=== PATIENT | male | born 1940 | race Caucasian/White ===

== ENCOUNTER 2020-08-06 21:28 | Emergency (ER) | payer MEDICARE ==
--- NOTE | 2020-08-06 22:06 | EDM.PDOC ---
ED HPI GENERAL MEDICAL PROBLEM - General Chief Complaint: Chest Pain Stated Complaint: MEDICAL [facility] Time Seen by Provider: 08/06/20 21:35 Source of Information: Reports: Patient, EMS, RN History Limitations: Reports: No Limitations - History of Present Illness INITIAL COMMENTS - FREE TEXT/NARRATIVE: 80-year-old male tends to have chronic chest pain complaints, tonight was again complaining of some chest discomfort. He also said he had to go to the bathroom so they were helping him get to the bathroom and he had a near syncopal episode. This was followed by a very large bowel movement, he was still complaining of chest pain so they gave him 1 nitroglycerin and decided to send him for evaluation. When EMS arrived and picked him up he was having no symptoms. He is still having no symptoms Onset: Sudden (Pain started fairly suddenly around 7 PM) Location: Reports: Chest - Related Data Allergies Allergy/AdvReac Type Severity Reaction Status Date / Time Sulfa (Sulfonamide Allergy Hives Verified 08/06/20 21:36 Antibiotics) Home Meds: Home Meds Amitriptyline [Elavil] 100 mg PO BEDTIME 08/06/20 [History] Aspirin [Ecotrin EC] 81 mg PO DAILY 08/06/20 [History] Divalproex Sodium [Depakote] 250 mg PO BEDTIME 08/06/20 [History] Donepezil HCl [Aricept] 10 mg PO DAILY 08/06/20 [History] Escitalopram Oxalate [Lexapro] 20 mg PO DAILY 08/06/20 [History] LORazepam [Ativan] 1 mg PO Q4H PRN 08/06/20 [History] Melatonin 36 mg PO BEDTIME 08/06/20 [History] Memantine [Namenda] 10 mg PO BID 08/06/20 [History] Metoprolol Tartrate [Lopressor] 50 mg PO BID 08/06/20 [History] Mirtazapine [Remeron] 45 mg PO BEDTIME 08/06/20 [History] Nitroglycerin [Nitrostat] 0.4 mg SL ASDIRECTED 08/06/20 [History] Omeprazole 20 mg PO BID 08/06/20 [History] hydrOXYzine HCL [Atarax] 25 mg PO BID 08/06/20 [History] Past Medical History HEENT History: Reports: Impaired Vision Cardiovascular History: Reports: Angina, CAD, Hypertension, Other (See Below) Other Cardiovascular History: prolonged Q-T interval on ECG Musculoskeletal History: Reports: Arthritis, Osteoarthritis Psychiatric History: Reports: Anxiety, Dementia, Depression Endocrine/Metabolic History: Reports: Obesity/BMI 30+ Social & Family History - Tobacco Use Tobacco Use Status *Q: Unknown Ever Used Tobacco ED ROS GENERAL - Review of Systems Review Of Systems: See Below Constitutional: Denies: Fever, Chills, Malaise HEENT: Reports: No Symptoms Respiratory: Denies: Shortness of Breath, Cough Cardiovascular: Reports: Chest Pain. Denies: Palpitations Endocrine: Denies: Fatigue GI/Abdominal: Reports: Vomiting (1 episode of vomiting this evening after his near syncopal episode) Neurological: Reports: Other (Near syncope) ED EXAM, GENERAL - Physical Exam Exam: See Below Exam Limited By: No Limitations General Appearance: Alert, No Apparent Distress Head: Atraumatic Neck: Supple, Non-Tender Respiratory/Chest: Lungs Clear Cardiovascular: Regular Rate, Rhythm GI/Abdominal: Soft, Non-Tender Neurological: Alert Psychiatric: Normal Affect, Normal Mood Skin Exam: Warm, Dry #1 Interpretation EKG Date: 08/06/20 Rhythm: NSR ST-T: Normal Course - Vital Signs Last Recorded V/S: Last Vital Signs Temp 97.4 F 08/06/20 21:54 Pulse 70 08/06/20 22:31 Resp 17 08/06/20 22:31 BP 125/66 08/06/20 22:31 Pulse Ox 96 08/06/20 22:31 - Orders/Labs/Meds Orders: Active Orders 24 hr Category Date Time Status EKG 12 Lead [EK] Routine Ther 08/06/20 21:42 Ordered Labs: Laboratory Tests 08/06/20 Range/Units 21:57 Troponin I < 0.017 (0.000-0.056) ng/mL - Re-Assessments/Exams Free Text/Narrative Re-Assessment/Exam: 08/06/20 22:06 EKG done on arrival is normal. Troponin was drawn, if this is negative he will be sent back. 08/06/20 22:30 Patient remained comfortable and asymptomatic, troponin was 0. He will be discharged home. Departure - Departure Time of Disposition: 22:57 Disposition: DC[facility] Clinical Impression: Atypical chest pain - Discharge Information Instructions: Nonspecific Chest Pain, Adult, [id number] Referrals: PCP,None [Primary Care Provider] - Forms: ED Department Discharge Care Plan Goals: Continue your current medications. Use nitroglycerin for recurring chest pains and consider returning if persistent especially with shortness of breath. Sepsis Event Note (ED) - Evaluation Sepsis Screening Result: No Definite Risk - Focused Exam Vital Signs: Vital Signs Temp Pulse Resp BP Pulse Ox 08/06/20 22:31 70 17 125/66 96 08/06/20 21:54 97.4 F 64 16 126/76 97 08/06/20 21:50 97.4 F 64 16 126/76 97 - My Orders Last 24 Hours: My Active Orders 08/06/20 21:42 EKG 12 Lead [EK] Routine - Assessment/Plan Last 24 Hours: My Active Orders 08/06/20 21:42 EKG 12 Lead [EK] Routine
== END 2020-08-06 22:58 ==
LOC: JP.ED 21:28
DX: R07.89 Other chest pain (principal); I25.10 Atherosclerotic heart disease of native coronary artery without angina pectoris; I10 Essential (primary) hypertension; M19.90 Unspecified osteoarthritis, unspecified site; F03.90 Unspecified dementia, unspecified severity, without behavioral disturbance, psychotic disturbance, mood disturbance, and anxiety; E66.9 Obesity, unspecified; Z68.27 Body mass index [BMI] 27.0-27.9, adult; Z79.82 Long term (current) use of aspirin; Z79.899 Other long term (current) drug therapy; Z88.2 Allergy status to sulfonamides
CPT/HCPCS: 36415; 84484; 93005; 99284; 99285-25

== ENCOUNTER 2020-09-13 15:04 | Emergency (ER) | payer MEDICARE ==
--- NOTE | 2020-09-13 15:35 | EDM.PDOC ---
<OfficerJacek - Last Filed: 09/13/20 15:33> ED HPI GENERAL MEDICAL PROBLEM - General Chief Complaint: Chest Pain Stated Complaint: MEDICAL [facility]IA [facility] Time Seen by Provider: 09/13/20 15:28 Source of Information: Reports: Patient, RN Notes Reviewed History Limitations: Reports: Physical Impairment - History of Present Illness INITIAL COMMENTS - FREE TEXT/NARRATIVE: 80-year-old gentleman presents the emergency department with a complaint of chest pain, he is a resident of the [facility] unit does have a history of coronary artery disease with a history of stenting. States the chest pain started about an hour and a half ago did arrive by EMS where he received 1 spray nitro 324 aspirin EKG performed by paramedics reveals no ST elevations or depressions. At this time he is chest pain-free does admit to some shortness of breath no nausea no diaphoresis Treatments CARPENTER ASSISTANT: Reports: Aspirin, Nitroglycerin chest pain Pain Score (Numeric/FACES): 3 - Related Data Allergies Allergy/AdvReac Type Severity Reaction Status Date / Time Sulfa (Sulfonamide Allergy Hives Verified 09/13/20 15:10 Antibiotics) Home Meds: Home Meds Amitriptyline [Elavil] 100 mg PO BEDTIME 08/06/20 [History] Aspirin [Ecotrin EC] 81 mg PO DAILY 08/06/20 [History] Divalproex Sodium [Depakote] 250 mg PO BEDTIME 08/06/20 [History] Donepezil HCl [Aricept] 10 mg PO DAILY 08/06/20 [History] Escitalopram Oxalate [Lexapro] 20 mg PO DAILY 08/06/20 [History] LORazepam [Ativan] 0.5 mg PO Q4H PRN 08/06/20 [History] Melatonin 6 mg PO BEDTIME 08/06/20 [History] Memantine [Namenda] 10 mg PO BID 08/06/20 [History] Metoprolol Tartrate [Lopressor] 50 mg PO BID 08/06/20 [History] Mirtazapine [Remeron] 45 mg PO BEDTIME 08/06/20 [History] Nitroglycerin [Nitrostat] 0.4 mg SL ASDIRECTED 08/06/20 [History] Omeprazole 20 mg PO BID 08/06/20 [History] hydrOXYzine HCL [Atarax] 25 mg PO BID 08/06/20 [History] Past Medical History HEENT History: Reports: Impaired Vision Cardiovascular History: Reports: Angina, CAD, Hypertension, Other (See Below) Other Cardiovascular History: prolonged Q-T interval on ECG Musculoskeletal History: Reports: Arthritis, Osteoarthritis Psychiatric History: Reports: Alzheimers Disease, Anxiety, Dementia, Depression Endocrine/Metabolic History: Reports: Obesity/BMI 30+ Social & Family History - Tobacco Use Tobacco Use Status *Q: Former Tobacco User Used Tobacco, but Quit: Yes Month/Year Tobacco Last Used: 30 ED ROS GENERAL - Review of Systems Review Of Systems: See Below Constitutional: Reports: No Symptoms HEENT: Reports: No Symptoms Respiratory: Reports: Shortness of Breath Cardiovascular: Reports: Chest Pain GI/Abdominal: Reports: No Symptoms : Reports: No Symptoms ED EXAM, GENERAL - Physical Exam Exam: See Below Exam Limited By: No Limitations General Appearance: Alert, WD/WN, No Apparent Distress Respiratory/Chest: No Respiratory Distress, Lungs Clear, Normal Breath Sounds, No Accessory Muscle Use, Chest Non-Tender Cardiovascular: Regular Rate, Rhythm, No Murmur GI/Abdominal: Soft, Non-Tender Departure - Departure Disposition: Home, Self-Care 01 Clinical Impression: Chest pain Qualifiers: Chest pain type: precordial pain Qualified Code(s): R07.2 - Precordial pain Instructions: Angina, [id number] Referrals: PCP,None [Primary Care Provider] - Forms: ED Department Discharge Care Plan Goals: Consider using sublingual nitroglycerin at home prior to transfer, and if pain persists return to the emergency room. Also consider a cardiology consultation for further testing if symptoms continue recurring and you are interested in more definitive treatment such as angiogram, surgery or stenting if needed. Sepsis Event Note (ED) - Evaluation Sepsis Screening Result: No Definite Risk <Francisco Gunn - Last Filed: 09/13/20 22:44> Course - Vital Signs Last Recorded V/S: Last Vital Signs Temp 97.7 F 09/13/20 15:09 Pulse 76 09/13/20 15:09 Resp 16 09/13/20 15:09 BP 111/64 09/13/20 15:09 Pulse Ox 92 L 09/13/20 15:09 - Orders/Labs/Meds Labs: Laboratory Tests 09/13/20 09/13/20 09/13/20 Range/Units 15:43 15:43 17:48 WBC 6.6 (4.5-11.0) K/uL RBC 4.69 (4.30-5.90) M/uL Hgb 13.4 (12.0-15.0) g/dL Hct 40.0 (40.0-54.0) % MCV 85 (80-98) fL MCH 29 (27-31) pg MCHC 34 (32-36) % Plt Count 133 L (150-400) K/uL Neut % (Auto) 64 (36-66) % Lymph % (Auto) 21 L (24-44) % [place] % (Auto) 9 H (2-6) % Eos % (Auto) 6 H (2-4) % Baso % (Auto) 1 (0-1) % Sodium 142 (140-148) mmol/L Potassium 4.4 (3.6-5.2) mmol/L Chloride 103 (100-108) mmol/L Carbon Dioxide 31 (21-32) mmol/L Anion Gap 8.0 (5.0-14.0) mmol/L BUN 13 (7-18) mg/dL Creatinine 0.9 (0.8-1.3) mg/dL Est Cr Clr Drug Dosing 60.06 mL/min Estimated GFR (MDRD) > 60 (>60) Glucose 99 (74-106) mg/dL Calcium 8.6 (8.5-10.1) mg/dL Total Bilirubin 0.6 (0.2-1.0) mg/dL AST 42 H (15-37) U/L ALT 37 (12-78) U/L Alkaline Phosphatase 97 (46-116) U/L Troponin I < 0.017 < 0.017 (0.000-0.056) ng/mL Total Protein 6.1 L (6.4-8.2) g/dL Albumin 3.5 (3.4-5.0) g/dL Globulin 2.6 (2.3-3.5) g/dL Albumin/Globulin Ratio 1.3 (1.2-2.2) - Re-Assessments/Exams Free Text/Narrative Re-Assessment/Exam: 09/13/20 18:30 Care turned over from Officer pending second troponin. Patient continues to have no symptoms. Troponin is 0, patient will be discharged. Departure - Departure Time of Disposition: 18:52 Sepsis Event Note (ED) - Focused Exam Vital Signs: Vital Signs Temp Pulse Resp BP Pulse Ox 09/13/20 15:09 97.7 F 76 16 111/64 92 L
--- NOTE | 2020-09-13 16:06 | CR ---
CHEST: Portable 09/13/2020 at 3:47 PM CLINICAL HISTORY:Chest pain COMPARISON:None FINDINGS: There is streaky atelectasis in both lung bases. There are atherosclerotic changes in the aorta. No infiltrates are seen. There are no pleural effusions. Impression: No acute cardiac pulmonary process Streaky bilateral lower lobe atelectasis
== END 2020-09-13 18:52 | disposition home or self-care (01) ==
LOC: JP.ED 15:04
DX: R07.2 Precordial pain (principal); I25.10 Atherosclerotic heart disease of native coronary artery without angina pectoris; I10 Essential (primary) hypertension; E66.9 Obesity, unspecified; Z87.891 Personal history of nicotine dependence; Z79.899 Other long term (current) drug therapy; Z79.82 Long term (current) use of aspirin; Z88.2 Allergy status to sulfonamides; Z68.38 Body mass index [BMI] 38.0-38.9, adult
CPT/HCPCS: 36415; 71045; 71045-26; 80053; 84484; 85025; 99285-25

== ENCOUNTER 2020-10-22 12:00 | Emergency (ER) | payer MEDICARE, MEDICAID ==
--- NOTE | 2020-10-22 12:11 | EDM.PDOC ---
ED HPI GENERAL MEDICAL PROBLEM - General Chief Complaint: Chest Pain Stated Complaint: MEDICAL [facility] Time Seen by Provider: 10/22/20 13:04 Source of Information: Reports: Patient, EMS, Family, RN Notes Reviewed History Limitations: Reports: No Limitations - History of Present Illness INITIAL COMMENTS - FREE TEXT/NARRATIVE: 80-year-old gentleman presents emergency department day complaint of chest pain, he states that chest pain on and off throughout most of the day today. He did arrive by EMS services was given aspirin and nitro. He states the nitro helped he still having some ongoing chest pain no nausea vomiting no shortness of breath no diaphoresis. He does have a history of coronary artery disease he is a DNR and DNI Epigastric Pain Score (Numeric/FACES): 7 - Related Data Allergies Allergy/AdvReac Type Severity Reaction Status Date / Time Sulfa (Sulfonamide Allergy Hives Verified 09/13/20 15:10 Antibiotics) Home Meds: Home Meds Amitriptyline [Elavil] 100 mg PO BEDTIME 08/06/20 [History] Aspirin [Ecotrin EC] 81 mg PO DAILY 08/06/20 [History] Divalproex Sodium [Depakote] 250 mg PO BEDTIME 08/06/20 [History] Donepezil HCl [Aricept] 10 mg PO DAILY 08/06/20 [History] Escitalopram Oxalate [Lexapro] 20 mg PO DAILY 08/06/20 [History] LORazepam [Ativan] 0.5 mg PO Q4H PRN 08/06/20 [History] Melatonin 6 mg PO BEDTIME 08/06/20 [History] Memantine [Namenda] 10 mg PO BID 08/06/20 [History] Metoprolol Tartrate [Lopressor] 50 mg PO BID 08/06/20 [History] Mirtazapine [Remeron] 45 mg PO BEDTIME 08/06/20 [History] Nitroglycerin [Nitrostat] 0.4 mg SL ASDIRECTED 08/06/20 [History] Omeprazole 20 mg PO BID 08/06/20 [History] hydrOXYzine HCL [Atarax] 25 mg PO BID 08/06/20 [History] Past Medical History HEENT History: Reports: Impaired Vision Cardiovascular History: Reports: Angina, CAD, High Cholesterol, Hypertension, Other (See Below) Other Cardiovascular History: prolonged Q-T interval on ECG Musculoskeletal History: Reports: Arthritis, Osteoarthritis Psychiatric History: Reports: Alzheimers Disease, Anxiety, Dementia, Depression Endocrine/Metabolic History: Reports: Obesity/BMI 30+ Social & Family History - Tobacco Use Tobacco Use Status *Q: Former Tobacco User ED ROS GENERAL - Review of Systems Review Of Systems: See Below Constitutional: Reports: No Symptoms HEENT: Reports: No Symptoms Respiratory: Denies: Shortness of Breath Cardiovascular: Reports: Chest Pain GI/Abdominal: Reports: No Symptoms ED EXAM, GENERAL - Physical Exam Exam: See Below Exam Limited By: No Limitations General Appearance: Alert, WD/WN, No Apparent Distress Respiratory/Chest: No Respiratory Distress, Lungs Clear, Normal Breath Sounds, No Accessory Muscle Use, Chest Non-Tender Cardiovascular: Regular Rate, Rhythm, No Murmur GI/Abdominal: Soft, Non-Tender #1 Interpretation EKG Date: 10/22/20 Time: 12:06 Rhythm: NSR [place]: Normal P-Wave: Present QRS: Normal ST-T: Normal QT: Normal Comparison: NA - No Prior EKG Course - Vital Signs Last Recorded V/S: Last Vital Signs Temp 96.2 F L 10/22/20 12:14 Pulse 59 L 10/22/20 12:14 Resp 15 10/22/20 12:14 BP 96/54 L 10/22/20 12:14 Pulse Ox 88 L 10/22/20 12:14 - Orders/Labs/Meds Orders: Active Orders 24 hr Category Date Time Status Cardiac Monitoring [RC] .As Directed Care 10/22/20 13:03 Active EKG Documentation Completion [RC] ASDIRECTED Care 10/22/20 13:03 Active Peripheral IV Care [RC] . DIRECTED Care 10/22/20 13:03 Active Nitroglycerin [Nitrostat] Med 10/22/20 13:03 Active 0.4 mg SL Q5M PRN Sodium Chloride 0.9% [Saline Flush] Med 10/22/20 13:03 Active 10 ml FLUSH ASDIRECTED PRN Peripheral IV Insertion Adult [OM.PC] Stat Oth 10/22/20 13:03 Ordered Saline Lock Insert [OM.PC] Stat Oth 10/22/20 13:03 Ordered EKG 12 Lead [EK] Stat Ther 10/22/20 13:03 Ordered Medication Orders Nitroglycerin (Nitroglycerin 0.4 Mg Tab.Sl) 0.4 mg SL Q5M PRN PRN Reason: Chest Pain Stop: 10/23/20 13:03 Sodium Chloride (Sodium Chloride 0.9% 10 Ml Syringe) 10 ml FLUSH ASDIRECTED PRN PRN Reason: Keep Vein Open Last Admin: 10/22/20 13:35 Dose: 10 ml Documented by: JAVIER Labs: Laboratory Tests 10/22/20 10/22/20 Range/Units 13:16 13:16 WBC 10.2 (4.5-11.0) K/uL RBC 4.45 (4.30-5.90) M/uL Hgb 12.9 (12.0-15.0) g/dL Hct 38.2 L (40.0-54.0) % MCV 86 (80-98) fL MCH 29 (27-31) pg MCHC 34 (32-36) % Plt Count 129 L (150-400) K/uL Neut % (Auto) 79.0 H (36-66) % Lymph % (Auto) 12.2 L (24-44) % [place] % (Auto) 7.9 H (2-6) % Eos % (Auto) 0.8 L (2-4) % Baso % (Auto) 0.1 (0-1) % Sodium 140 (140-148) mmol/L Potassium 4.3 (3.6-5.2) mmol/L Chloride 103 (100-108) mmol/L Carbon Dioxide 27 (21-32) mmol/L Anion Gap 9.6 (5.0-14.0) mmol/L BUN 12 (7-18) mg/dL Creatinine 0.8 (0.8-1.3) mg/dL Est Cr Clr Drug Dosing 82.18 mL/min Estimated GFR (MDRD) > 60 (>60) Glucose 125 H (74-106) mg/dL Calcium 8.6 (8.5-10.1) mg/dL Total Bilirubin 0.5 (0.2-1.0) mg/dL AST 103 H D (15-37) U/L ALT 129 H (12-78) U/L Alkaline Phosphatase 98 (46-116) U/L Troponin I < 0.017 (0.000-0.056) ng/mL Total Protein 6.2 L (6.4-8.2) g/dL Albumin 3.5 (3.4-5.0) g/dL Globulin 2.7 (2.3-3.5) g/dL Albumin/Globulin Ratio 1.3 (1.2-2.2) Meds: Medications Generic Name Dose Route Start Last Admin Trade Name Freq PRN Reason Stop Dose Admin Nitroglycerin 0.4 mg 10/22/20 13:03 Nitroglycerin 0.4 Mg Tab.Sl SL 10/23/20 13:03 Q5M PRN Chest Pain Sodium Chloride 10 ml 10/22/20 13:03 10/22/20 13:35 Sodium Chloride 0.9% 10 Ml Syringe FLUSH 10 ml ASDIRECTED PRN Administration Keep Vein Open Discontinued Medications Generic Name Dose Route Start Last Admin Trade Name Freq PRN Reason Stop Dose Admin Aspirin 324 mg 10/22/20 13:03 10/22/20 13:15 Aspirin 81 Mg Tab.Chew PO 10/22/20 13:04 324 mg ONETIME ONE Administration Al Hydroxide/Mg Hydroxide 15 0 ml 10/22/20 13:58 10/22/20 14:05 ml/ Lidocaine HCl 15 ml PO 10/22/20 13:59 30 ml ONETIME ONE Administration Ondansetron HCl 4 mg 10/22/20 13:16 10/22/20 13:35 Ondansetron 4 Mg/2 Ml Sdv IVPUSH 10/22/20 13:17 4 mg ONETIME ONE Administration Departure - Departure Time of Disposition: 14:59 Disposition: Home, Self-Care 01 Condition: Fair Clinical Impression: Epigastric abdominal pain Instructions: Abdominal Pain, Adult, [id number] Referrals: PCP,None [Primary Care Provider] - Forms: ED Department Discharge Additional Instructions: Continue with your regular medications, please followup with your primary care provider in 3-5 days if not better, please call return to the emergency department with worsening of symptoms. Sepsis Event Note (ED) - Focused Exam Vital Signs: Vital Signs Temp Pulse Resp BP Pulse Ox 10/22/20 12:14 96.2 F L 59 L 15 96/54 L 88 L - My Orders Last 24 Hours: My Active Orders 10/22/20 13:03 Cardiac Monitoring [RC] .As Directed EKG Documentation Completion [RC] ASDIRECTED Peripheral IV Care [RC] . DIRECTED Nitroglycerin [Nitrostat] 0.4 mg SL Q5M PRN Sodium Chloride 0.9% [Saline Flush] 10 ml FLUSH ASDIRECTED PRN Peripheral IV Insertion Adult [OM.PC] Stat Saline Lock Insert [OM.PC] Stat EKG 12 Lead [EK] Stat - Assessment/Plan Last 24 Hours: My Active Orders 10/22/20 13:03 Cardiac Monitoring [RC] .As Directed EKG Documentation Completion [RC] ASDIRECTED Peripheral IV Care [RC] . DIRECTED Nitroglycerin [Nitrostat] 0.4 mg SL Q5M PRN Sodium Chloride 0.9% [Saline Flush] 10 ml FLUSH ASDIRECTED PRN Peripheral IV Insertion Adult [OM.PC] Stat Saline Lock Insert [OM.PC] Stat EKG 12 Lead [EK] Stat Plan: Assessment Acuity = acute Site and laterality = epigastric abdominal pain Etiology = probably related to reflux Manifestations = none Location of injury = Home Lab values = CBC unremarkable CMP reveals AST elevated 103 ALT elevated 129 consistent with elevated liver enzymes, troponin was negative EKG unremarkable same as prior EKG chest x-ray shows no acute process Plan He had good relief from a GI cocktail although difficult to assess secondary to his dementia, I did review with his family lab work EKG chest x-ray results plan is discharged home follow-up with his primary care as needed This note was dictated using [employer] voice recognition software please call with any questions on syntax or grammar.
[2020-10-22] MEDS ORDERED: Nitroglycerin 0.4 MG Tab.SL SL PRN (13:03)
[2020-10-22] MEDS ORDERED: Aspirin 81 MG Tab.Chew PO ONE (13:03)
[2020-10-22] MEDS ORDERED: Sodium Chloride 0.9% 10 ML Syringe FLUSH PRN (13:03)
[2020-10-22] MEDS ORDERED: Ondansetron 4 MG/2 ML SDV IVPUSH ONE (13:16)
--- NOTE | 2020-10-22 13:44 | CR ---
CHEST: Portable 10/22/2020 at 1:32 PM CLINICAL HISTORY:Chest pain COMPARISON:09/13/2020 FINDINGS: The heart size, pulmonary vascularity and hilar structures are normal. No infiltrate effusion or pneumothorax is seen. There is some nodularity in the inferior right hilar region. There is overlapping EKG leads. IMPRESSION: No acute cardiopulmonary process. Questionable nodularity in the right infrahilar region. Two-view chest recommended when patient's condition allows.
[2020-10-22] MEDS ORDERED: Alum Hydrox/Mag Hydrox/Simeth 15 ML, Lidocaine 2% 15 ML PO ONE ×2 (13:58)
== END 2020-10-22 15:17 | disposition home or self-care (01) ==
LOC: JP.ED 12:00
DX: R10.13 Epigastric pain (principal); I25.10 Atherosclerotic heart disease of native coronary artery without angina pectoris; E78.00 Pure hypercholesterolemia, unspecified; I10 Essential (primary) hypertension; M19.90 Unspecified osteoarthritis, unspecified site; G30.9 Alzheimer's disease, unspecified; F02.80 Dementia in other diseases classified elsewhere, unspecified severity, without behavioral disturbance, psychotic disturbance, mood disturbance, and anxiety; E66.9 Obesity, unspecified; Z68.32 Body mass index [BMI] 32.0-32.9, adult; Z88.2 Allergy status to sulfonamides; Z79.82 Long term (current) use of aspirin; Z79.899 Other long term (current) drug therapy; Z87.891 Personal history of nicotine dependence
CPT/HCPCS: 36415; 71045; 71045-26; 80053; 84484; 85025; 93005; 96374; 99285-25; A9270-GY; J2405

== ENCOUNTER 2020-10-24 18:39 | Inpatient (IN) | payer MEDICARE, MEDICAID ==
[2020-10-24] MEDS ORDERED: Sodium Chloride 0.9% 10 ML Syringe FLUSH PRN ×2 (18:48)
[2020-10-24] MEDS ORDERED: Sodium Chloride 0.9% 1,000 ML IV SCH (19:00)
--- NOTE | 2020-10-24 19:03 | EDM.PDOC ---
ED HPI GENERAL MEDICAL PROBLEM - General Chief Complaint: Syncope Stated Complaint: MEDICAL [facility]IA [facility] Time Seen by Provider: 10/24/20 18:40 Source of Information: Reports: Patient, EMS, Other (ED RN who took report from EMS) History Limitations: Reports: Other (memory loss) - History of Present Illness INITIAL COMMENTS - FREE TEXT/NARRATIVE: Patient presents via EMS from home. Patient notes he does not feel well. He notes a chills. Has had no runny nose, sore throat, cough, change in taste or smell. He is not had Covid or been vaccinated. Denies any chest pain, palpitat ions or shortness of breath. Denies abdominal pain. Denies any urinary symptoms. He notes he just "does not feel well" Patient's apparently called EMS and was transported here for decreased LOC. Patient is on anticoagulated and denies any other complaints except for above. Apparently there is been no falls or trauma. 193: Additional history obtained from son who is at the bedside. Patient's son notes that he was called by Michelle [facility] care unit patient having a fever this evening. There is been no falls or trauma. Patient lives alone and is . The son notes he been confused for last 12 years or so. There is no recent antibiotics. And per the son patient has been vaccinated against Covid. Son has no further information denies any other related complaints or diarrhea. Onset: Today (Patient presents via EMS from home. Patient notes he does not feel well. He notes to chills. He has had no runny nose, sore throat, cough, headache, neck pain, chest pain, palpitations. ) - Related Data Allergies Allergy/AdvReac Type Severity Reaction Status Date / Time Sulfa (Sulfonamide Allergy Hives Verified 10/24/20 19:14 Antibiotics) Home Meds: Home Meds Aspirin [Ecotrin EC] 81 mg PO DAILY 08/06/20 [History] Divalproex Sodium [Depakote] 250 mg PO BEDTIME 08/06/20 [History] Donepezil HCl [Aricept] 10 mg PO DAILY 08/06/20 [History] Escitalopram Oxalate [Lexapro] 20 mg PO DAILY 08/06/20 [History] Melatonin 6 mg PO BEDTIME 08/06/20 [History] Memantine [Namenda] 10 mg PO BID 08/06/20 [History] Metoprolol Tartrate [Lopressor] 50 mg PO DAILY 08/06/20 [History] Mirtazapine [Remeron] 45 mg PO BEDTIME 08/06/20 [History] Nitroglycerin [Nitrostat] 0.4 mg SL ASDIRECTED 08/06/20 [History] Omeprazole 20 mg PO BID 08/06/20 [History] Acetaminophen [Pain Relief] 650 mg PO TID 10/24/20 [History] Cholecalciferol (Vitamin D3) [Vitamin D3] 1,000 unit PO DAILY 10/24/20 [History] Clotrimazole [Clotrimazole 1%] 1 applic TOP BID 10/24/20 [History] Metoprolol Tartrate 25 mg PO BEDTIME 10/24/20 [History] QUEtiapine [SEROquel] 12.5 mg PO TID 10/24/20 [History] Past Medical History HEENT History: Reports: Impaired Vision Cardiovascular History: Reports: Angina, CAD, High Cholesterol, Hypertension, Other (See Below) Other Cardiovascular History: prolonged Q-T interval on ECG Musculoskeletal History: Reports: Arthritis, Osteoarthritis Psychiatric History: Reports: Alzheimers Disease, Anxiety, Dementia, Depression Endocrine/Metabolic History: Reports: Obesity/BMI 30+ - Infectious Disease History Infectious Disease History: Reports: Chicken Pox, Measles, Mumps Social & Family History - Caffeine Use Caffeine Use: Reports: Coffee ED ROS GENERAL - Review of Systems Review Of Systems: See Below Constitutional: Reports: Fever, Chills HEENT: Reports: No Symptoms Respiratory: Reports: No Symptoms Cardiovascular: Reports: No Symptoms Endocrine: Reports: No Symptoms GI/Abdominal: Reports: No Symptoms : Reports: No Symptoms Musculoskeletal: Reports: No Symptoms Skin: Reports: No Symptoms Neurological: Reports: Weakness Psychiatric: Reports: No Symptoms Hematologic/Lymphatic: Reports: No Symptoms Immunologic: Reports: No Symptoms Free Text/Narrative/Comment: ROS is limited due to to the patient being forgetful. His only complaint to me is he feels weak generally. He is no other complaints. Chart review indicates he is fully vaccinated for Covid. ED EXAM, DIZZINESS - Physical Exam Exam: See Below Exam Limited By: No Limitations General Appearance: Alert Ears: Normal External Exam, Normal Canal Nose: Normal Inspection Throat/Mouth: Normal Inspection Head Exam: Normocephalic Neck: Normal Inspection, Supple, Full Range of Motion Respiratory/Chest: Lungs Clear Cardiovascular: Normal Peripheral Pulses, No Edema, No Murmur GI/Abdominal: Normal Bowel Sounds, Soft, Tender (Subtle tenderness right mid upper quadrant not persistently present.), Other (Small soft potential umbilical hernia. tender in right mid and upper quadrant). No: Guarding, Rigid, Rebound (Male) Exam: No Hernia, Normal Inspection Rectal (Males) Exam: Normal Exam Neurological: Alert, Normal Mood/Affect, Normal Dorsiflexion, No Motor/Sensory Deficits, Other (Oriented to self. No focal arm or leg weakness. He mentions watching television.) Back Exam: Normal Inspection. No: CVA Tenderness (R), CVA Tenderness (L) Extremities: Normal Inspection, Normal Range of Motion, Non-Tender, No Pedal Edema Psychiatric: Normal Affect Skin Exam: Warm, Dry, No Rash #1 Interpretation EKG Date: 10/24/20 Rhythm: NSR Rate (Beats/Min): 95 [place]: Normal P-Wave: Present QRS: Normal ST-T: Other (bordeline t wave change) QT: Normal Comparison: NA - No Prior EKG Course - Vital Signs Text/Narrative:: I consider broad differential diagnosis. Patient presents with memory loss over 12 years and new onset fever and chills today. Patient was seen 2 days ago with chest pain and had negative work-up. Interestingly LFTs were elevated 2 days ago mildly so and have normalized today. Patient by definition of sepsis. His elevated procalcitonin. Cover him with Zosyn. patient has no cp or sob or hypoxemia today. I doubt a PE. He is not a good coumadin candidate. There is no previous history of MRSA. Patient exam today shows no signs of meningismus. He has no chest pain or cough. His abdominal exam is generally soft without rebound tenderness but he initially mild tenderness in the right mid and upper quadrant. He has no flank tenderness. No joint swelling. Plan: patient accepted by the hospitalist for admission. At time of dictation CT chest/abd/pelvis is pending. CODE STATUS is DNR/DNI. 2044. CT chest/abd/ pelvis is reviewed by myself and noted for emphysematous cholecystitis. I updated the admitting provider, Rosina Alejandro CREATIVE INTERN at the patient's bedside who voiced understanding. Patient is generally interested in comfort care. Surgical consultation and surgical mention was discussed. 2148; Dr. Bashir surgeon is currently being consulted by admitting provider. Patient and his son are interested in a surgical opinion and potential surgical invention. Finally admitting CREATIVE INTERN has consulted with surgeon who has recommended n.p.o. after midnight with surgical intervention in the am. family updated and voiced understanding. further intervention per admit team and surgeon. Last Recorded V/S: Last Vital Signs Temp 38.2 C H 10/24/20 19:25 Pulse 90 10/24/20 22:49 Resp 16 10/24/20 19:25 BP 96/75 10/24/20 22:49 Pulse Ox 92 L 10/24/20 19:25 - Orders/Labs/Meds Orders: Active Orders 24 hr Category Date Time Status EKG Documentation Completion [RC] ASDIRECTED Care 10/24/20 18:49 Active EKG Documentation Completion [RC] ASDIRECTED Care 10/24/20 18:51 Active Chest 1V Frontal [CR] Stat Exams 10/24/20 18:49 Taken CULTURE BLOOD [BC] Urgent Lab 10/24/20 19:10 Received CULTURE BLOOD [BC] Urgent Lab 10/24/20 19:16 Received Iopamidol [Isovue-300 (61%)] Med 10/24/20 21:00 Active 100 ml IV . DIRECTED Piperacillin/Tazobactam [Zosyn] 3.375 gm Med 10/24/20 19:45 Active Sodium Chloride 0.9% [Normal Saline] 50 ml IV ONETIME Sodium Chloride 0.9% [Normal Saline] 1,000 ml Med 10/24/20 19:00 Active IV ASDIRECTED Sodium Chloride 0.9% [Normal Saline] 80 ml Med 10/24/20 21:00 Active IV ASDIRECTED Sodium Chloride 0.9% [Saline Flush] Med 10/24/20 18:48 Active 10 ml FLUSH ASDIRECTED PRN Sodium Chloride 0.9% [Saline Flush] Med 10/24/20 18:48 Active 10 ml FLUSH ASDIRECTED PRN Blood Culture x2 Reflex Set [OM.PC] Urgent Oth 10/24/20 18:49 Ordered Isolation [COMM] Stat Oth 10/24/20 18:51 Ordered Saline Lock Insert [OM.PC] Stat Oth 10/24/20 18:49 Ordered EKG 12 Lead [EK] Stat Ther 10/24/20 18:49 Ordered Medication Orders Sodium Chloride (Normal Saline) 1,000 mls @ 500 mls/hr IV ASDIRECTED ANTIONE Last Admin: 10/24/20 19:12 Dose: 500 mls/hr Documented by: RAFAL Piperacillin Sod/Tazobactam (Sod 3.375 gm/ Sodium Chloride) 50 mls @ 100 mls/hr IV ONETIME ANTIONE Last Admin: 10/24/20 20:21 Dose: 100 mls/hr Documented by: RAFAL Sodium Chloride (Normal Saline) 80 mls @ 3 mls/sec IV ASDIRECTED ANTIONE Last Admin: 10/24/20 21:45 Dose: 3 mls/sec Documented by: TONNY Iopamidol (Iopamidol 612 Mg/Ml 100 Ml Bottle) 100 ml IV . DIRECTED ANTIONE Last Admin: 10/24/20 21:45 Dose: 100 ml Documented by: TONNY Sodium Chloride (Sodium Chloride 0.9% 10 Ml Syringe) 10 ml FLUSH ASDIRECTED PRN PRN Reason: Keep Vein Open Last Admin: 10/24/20 19:11 Dose: 10 ml Documented by: RAFAL Sodium Chloride (Sodium Chloride 0.9% 10 Ml Syringe) 10 ml FLUSH ASDIRECTED PRN PRN Reason: Keep Vein Open Labs: Laboratory Tests 10/24/20 10/24/20 10/24/20 Range/Units 18:49 19:16 19:16 WBC 16.0 H (4.5-11.0) K/uL RBC 4.45 (4.30-5.90) M/uL Hgb 13.0 (12.0-15.0) g/dL Hct 38.5 L (40.0-54.0) % MCV 87 (80-98) fL MCH 29 (27-31) pg MCHC 34 (32-36) % Plt Count 120 L (150-400) K/uL Neut % (Auto) 88.0 H (36-66) % Lymph % (Auto) 3.8 L (24-44) % [place] % (Auto) 8.1 H (2-6) % Eos % (Auto) 0.0 L (2-4) % Baso % (Auto) 0.1 (0-1) % PT 11.4 (9.5-12.0) sec INR 1.05 (0.80-1.20) Sodium (140-148) mmol/L Potassium (3.6-5.2) mmol/L Chloride (100-108) mmol/L Carbon Dioxide (21-32) mmol/L Anion Gap (5.0-14.0) mmol/L BUN (7-18) mg/dL Creatinine (0.8-1.3) mg/dL Est Cr Clr Drug Dosing mL/min Estimated GFR (MDRD) (>60) Glucose (74-106) mg/dL Lactic Acid (0.4-2.0) mmol/L Calcium (8.5-10.1) mg/dL Total Bilirubin (0.2-1.0) mg/dL AST (15-37) U/L ALT (12-78) U/L Alkaline Phosphatase (46-116) U/L Troponin I (0.000-0.056) ng/mL Total Protein (6.4-8.2) g/dL Albumin (3.4-5.0) g/dL Globulin (2.3-3.5) g/dL Albumin/Globulin Ratio (1.2-2.2) Procalcitonin ng/mL Urine Color (YELLOW) Urine Appearance (CLEAR) Urine pH (5.0-8.0) Ur Specific [place] (1.008-1.030) Urine Protein (NEGATIVE) mg/dL Urine Glucose (UA) (NEGATIVE) mg/dL Urine Ketones (NEGATIVE) mg/dL Urine Occult Blood (NEGATIVE) Urine Nitrite (NEGATIVE) Urine Bilirubin (NEGATIVE) Urine Urobilinogen (0.2-1.0) EU/dL Ur Leukocyte Esterase (NEGATIVE) Urine RBC (0-5) Urine WBC (0-5) Ur Epithelial Cells Amorphous Sediment Urine Bacteria Urine Mucus Influenza Type A RNA Negative (NEGATIVE) RSV RNA (INAAT) Negative (NEGATIVE) Influenza Type B RNA Negative (NEGATIVE) SARS-CoV-2 RNA (DANNY) Negative (NEGATIVE) 10/24/20 10/24/20 10/24/20 Range/Units 19:16 19:16 19:16 WBC (4.5-11.0) K/uL RBC (4.30-5.90) M/uL Hgb (12.0-15.0) g/dL Hct (40.0-54.0) % MCV (80-98) fL MCH (27-31) pg MCHC (32-36) % Plt Count (150-400) K/uL Neut % (Auto) (36-66) % Lymph % (Auto) (24-44) % [place] % (Auto) (2-6) % Eos % (Auto) (2-4) % Baso % (Auto) (0-1) % PT (9.5-12.0) sec INR (0.80-1.20) Sodium 134 L (140-148) mmol/L Potassium 3.8 (3.6-5.2) mmol/L Chloride 97 L (100-108) mmol/L Carbon Dioxide 27 (21-32) mmol/L Anion Gap 13.8 (5.0-14.0) mmol/L BUN 31 H D (7-18) mg/dL Creatinine 1.0 (0.8-1.3) mg/dL Est Cr Clr Drug Dosing 61.85 mL/min Estimated GFR (MDRD) > 60 (>60) Glucose 138 H (74-106) mg/dL Lactic Acid 1.7 (0.4-2.0) mmol/L Calcium 8.7 (8.5-10.1) mg/dL Total Bilirubin 0.7 (0.2-1.0) mg/dL AST 18 D (15-37) U/L ALT 55 (12-78) U/L Alkaline Phosphatase 87 (46-116) U/L Troponin I < 0.017 (0.000-0.056) ng/mL Total Protein 6.2 L (6.4-8.2) g/dL Albumin 2.7 L (3.4-5.0) g/dL Globulin 3.5 (2.3-3.5) g/dL Albumin/Globulin Ratio 0.8 L (1.2-2.2) Procalcitonin 3.74 H* ng/mL Urine Color (YELLOW) Urine Appearance (CLEAR) Urine pH (5.0-8.0) Ur Specific [place] (1.008-1.030) Urine Protein (NEGATIVE) mg/dL Urine Glucose (UA) (NEGATIVE) mg/dL Urine Ketones (NEGATIVE) mg/dL Urine Occult Blood (NEGATIVE) Urine Nitrite (NEGATIVE) Urine Bilirubin (NEGATIVE) Urine Urobilinogen (0.2-1.0) EU/dL Ur Leukocyte Esterase (NEGATIVE) Urine RBC (0-5) Urine WBC (0-5) Ur Epithelial Cells Amorphous Sediment Urine Bacteria Urine Mucus Influenza Type A RNA (NEGATIVE) RSV RNA (INAAT) (NEGATIVE) Influenza Type B RNA (NEGATIVE) SARS-CoV-2 RNA (DANNY) (NEGATIVE) 10/24/20 Range/Units 20:28 WBC (4.5-11.0) K/uL RBC (4.30-5.90) M/uL Hgb (12.0-15.0) g/dL Hct (40.0-54.0) % MCV (80-98) fL MCH (27-31) pg MCHC (32-36) % Plt Count (150-400) K/uL Neut % (Auto) (36-66) % Lymph % (Auto) (24-44) % [place] % (Auto) (2-6) % Eos % (Auto) (2-4) % Baso % (Auto) (0-1) % PT (9.5-12.0) sec INR (0.80-1.20) Sodium (140-148) mmol/L Potassium (3.6-5.2) mmol/L Chloride (100-108) mmol/L Carbon Dioxide (21-32) mmol/L Anion Gap (5.0-14.0) mmol/L BUN (7-18) mg/dL Creatinine (0.8-1.3) mg/dL Est Cr Clr Drug Dosing mL/min Estimated GFR (MDRD) (>60) Glucose (74-106) mg/dL Lactic Acid (0.4-2.0) mmol/L Calcium (8.5-10.1) mg/dL Total Bilirubin (0.2-1.0) mg/dL AST (15-37) U/L ALT (12-78) U/L Alkaline Phosphatase (46-116) U/L Troponin I (0.000-0.056) ng/mL Total Protein (6.4-8.2) g/dL Albumin (3.4-5.0) g/dL Globulin (2.3-3.5) g/dL Albumin/Globulin Ratio (1.2-2.2) Procalcitonin ng/mL Urine Color Yellow (YELLOW) Urine Appearance Clear (CLEAR) Urine pH 6.0 (5.0-8.0) Ur Specific [place] >= 1.030 (1.008-1.030) Urine Protein 100 H (NEGATIVE) mg/dL Urine Glucose (UA) Negative (NEGATIVE) mg/dL Urine Ketones Negative (NEGATIVE) mg/dL Urine Occult Blood Negative (NEGATIVE) Urine Nitrite Negative (NEGATIVE) Urine Bilirubin Negative (NEGATIVE) Urine Urobilinogen 1.0 (0.2-1.0) EU/dL Ur Leukocyte Esterase Negative (NEGATIVE) Urine RBC 0-5 (0-5) Urine WBC 0-5 (0-5) Ur Epithelial Cells Rare Amorphous Sediment Few Urine Bacteria Rare Urine Mucus Rare Influenza Type A RNA (NEGATIVE) RSV RNA (INAAT) (NEGATIVE) Influenza Type B RNA (NEGATIVE) SARS-CoV-2 RNA (DANNY) (NEGATIVE) Meds: Medications Generic Name Dose Route Start Last Admin Trade Name Freq PRN Reason Stop Dose Admin Sodium Chloride 1,000 mls @ 500 mls/hr 10/24/20 19:00 10/24/20 19:12 Normal Saline IV 500 mls/hr ASDIRECTED ANTIONE Administration Piperacillin Sod/Tazobactam 50 mls @ 100 mls/hr 10/24/20 19:45 10/24/20 20:21 Sod 3.375 gm/ Sodium Chloride IV 100 mls/hr ONETIME ANTIONE Administration Sodium Chloride 80 mls @ 3 mls/sec 10/24/20 21:00 10/24/20 21:45 Normal Saline IV 3 mls/sec ASDIRECTED ANTIONE Administration Iopamidol 100 ml 10/24/20 21:00 10/24/20 21:45 Iopamidol 612 Mg/Ml 100 Ml Bottle IV 100 ml . DIRECTED ANTIONE Administration Sodium Chloride 10 ml 10/24/20 18:48 10/24/20 19:11 Sodium Chloride 0.9% 10 Ml Syringe FLUSH 10 ml ASDIRECTED PRN Administration Keep Vein Open Sodium Chloride 10 ml 10/24/20 18:48 Sodium Chloride 0.9% 10 Ml Syringe FLUSH ASDIRECTED PRN Keep Vein Open Discontinued Medications Generic Name Dose Route Start Last Admin Trade Name Freq PRN Reason Stop Dose Admin Ceftriaxone Sodium 1 gm/ 50 mls @ 100 mls/hr 10/24/20 19:36 10/24/20 20:09 Sodium Chloride IV 10/24/20 20:05 Not Given ONETIME ONE Departure - Departure Time of Disposition: 22:59 Disposition: Admitted As Inpatient 67 Condition: Poor Clinical Impression: Sepsis, Emphysematous cholecystitis - Discharge Information Referrals: PCP,None [Primary Care Provider] - Forms: ED Department Discharge Additional Instructions: surgery consulted from ED Sepsis Event Note (ED) - Focused Exam Vital Signs: Vital Signs Temp Pulse Resp BP Pulse Ox 10/24/20 22:49 90 96/75 10/24/20 21:10 96 133/106 H 10/24/20 20:24 96 131/68 10/24/20 19:25 38.2 C H 101 H 16 151/79 H 92 L 10/24/20 18:40 38.2 C H 101 H 16 151/79 H 92 L - My Orders Last 24 Hours: My Active Orders 10/24/20 18:48 Sodium Chloride 0.9% [Saline Flush] 10 ml FLUSH ASDIRECTED PRN Sodium Chloride 0.9% [Saline Flush] 10 ml FLUSH ASDIRECTED PRN 10/24/20 18:49 EKG Documentation Completion [RC] ASDIRECTED Chest 1V Frontal [CR] Stat Blood Culture x2 Reflex Set [OM.PC] Urgent Saline Lock Insert [OM.PC] Stat EKG 12 Lead [EK] Stat 10/24/20 18:51 EKG Documentation Completion [RC] ASDIRECTED Isolation [COMM] Stat 10/24/20 19:00 Sodium Chloride 0.9% [Normal Saline] 1,000 ml IV ASDIRECTED 10/24/20 19:10 CULTURE BLOOD [BC] Urgent 10/24/20 19:16 CULTURE BLOOD [BC] Urgent 10/24/20 19:45 Piperacillin/Tazobactam [Zosyn] 3.375 gm Sodium Chloride 0.9% [Normal Saline] 50 ml IV ONETIME 10/24/20 21:00 Iopamidol [Isovue-300 (61%)] 100 ml IV . DIRECTED Sodium Chloride 0.9% [Normal Saline] 80 ml IV ASDIRECTED - Assessment/Plan Last 24 Hours: My Active Orders 10/24/20 18:48 Sodium Chloride 0.9% [Saline Flush] 10 ml FLUSH ASDIRECTED PRN Sodium Chloride 0.9% [Saline Flush] 10 ml FLUSH ASDIRECTED PRN 10/24/20 18:49 EKG Documentation Completion [RC] ASDIRECTED Chest 1V Frontal [CR] Stat Blood Culture x2 Reflex Set [OM.PC] Urgent Saline Lock Insert [OM.PC] Stat EKG 12 Lead [EK] Stat 10/24/20 18:51 EKG Documentation Completion [RC] ASDIRECTED Isolation [COMM] Stat 10/24/20 19:00 Sodium Chloride 0.9% [Normal Saline] 1,000 ml IV ASDIRECTED 10/24/20 19:10 CULTURE BLOOD [BC] Urgent 10/24/20 19:16 CULTURE BLOOD [BC] Urgent 10/24/20 19:45 Piperacillin/Tazobactam [Zosyn] 3.375 gm Sodium Chloride 0.9% [Normal Saline] 50 ml IV ONETIME 10/24/20 21:00 Iopamidol [Isovue-300 (61%)] 100 ml IV . DIRECTED Sodium Chloride 0.9% [Normal Saline] 80 ml IV ASDIRECTED
[2020-10-24] MEDS ORDERED: cefTRIAXone 1 GM in Sodium Chloride 0.9% 50 ML IV ONE (19:36)
[2020-10-24] MEDS ORDERED: Piperacillin/Tazobactam 3.375 GM in Sodium Chloride 0.9% 50 ML IV SCH (19:45)
[2020-10-24] MEDS ORDERED: Sodium Chloride 0.9% 80 ML IV SCH (21:00)
[2020-10-24] MEDS ORDERED: Iopamidol 612 MG/ML 100 ML Bottle IV SCH (21:00)
[2020-10-24 21:42] LABS: CORONAVIRUS COVID-19 NAA NEGATIVE (NEGATIVE)
--- NOTE | 2020-10-24 22:32 | CRLCT ---
INDICATION: fever, chest pain, and abdominal pain CT CHEST, ABDOMEN, AND PELVIS WITH CONTRAST TECHNIQUE: Multidetector CT imaging was performed through the chest, abdomen, and pelvis following intravenous contrast administration using 100 mL Isovue-300. Coronal and sagittal reconstructions were generated. COMPARISON: None. FINDINGS: Lungs and airways: Dependent and basilar lung atelectasis, moderate on the right and mild on the left. Central airways are patent. Pleura and pleural spaces: No pleural effusions or pneumothorax. Heart and mediastinum: Normal heart size. No significant pericardial effusion. No pathologically enlarged mediastinal lymph nodes. Vascular structures: Normal caliber aorta. [id number] atherosclerotic calcifications of the aorta and its major branches, including the coronary arteries. Chest wall and axillae: No mass or axillary lymphadenopathy. Liver and spleen: Within normal limits. Gallbladder and bile ducts: Moderately distended gallbladder with diffuse wall thickening and marked pericholecystic fat stranding. Gas within the gallbladder lumen and within the gallbladder wall, as well as a few tiny bubbles of gas in the rom hepatis and left subhepatic space which may be extraluminal. Findings are consistent with emphysematous cholecystitis. No biliary dilation identified. Pancreas, adrenals, and retroperitoneum: No pancreatic or adrenal mass. No pathologically enlarged lymph nodes identified in the abdomen or pelvis. Kidneys, ureters, and urinary bladder: No renal masses or hydronephrosis. Diffuse wall prominence of the urinary bladder due to nondistention. Gastrointestinal tract and peritoneum: Mild wall thickening of the descending segment of the duodenum likely secondary to adjacent inflammation of the gallbladder described above. No evidence of bowel obstruction. Appendix not identified. Scattered colon diverticula without evidence of diverticulitis. Minimal free fluid in the right pericolic gutter without evidence of loculated abscess. No generalized free air. Reproductive organs: Mild prostatic enlargement. Bones: Spinal degenerative changes. IMPRESSION: 1. Emphysematous cholecystitis, as detailed above. 2. Bibasilar lung atelectasis, right greater than left. 3. Nonacute additional findings as detailed above. EAN GALLARDO MD [employer] Dictated by Crow Gallardo MD @ 10/24/2020 10:30:40 PM Dictated by: Crow Gallardo MD @ 10/24/2020 22:31:49 (Electronically Signed)
[2020-10-24] MEDS ORDERED: Albuterol/Ipratropium 3.0-0.5 MG/3 ML Neb Soln NEB PRN (23:12)
[2020-10-24] MEDS ORDERED: Albuterol 0.083% 2.5 MG/3 ML Neb Soln NEB PRN (23:12)
[2020-10-24] MEDS ORDERED: LORazepam 2 MG/ML SDV IV PRN (23:12)
[2020-10-24] MEDS ORDERED: Morphine 2 MG/ML SYRINGE IVPUSH PRN (23:12)
[2020-10-24] MEDS ORDERED: Nitroglycerin 0.4 MG Tab.SL SL SCH (23:30)
[2020-10-24] MEDS ORDERED: Dextrose 5%-Lactated Ringers 1,000 ML IV SCH (23:30)
[2020-10-24] MEDS ORDERED: Acetaminophen 1,000 MG in Premix Bag 1 BAG IV PRN (23:37)
--- NOTE | 2020-10-24 23:38 | PCM.HP.2 ---
H&P History of Present Illness - General Date of Service: 10/24/20 Admit Problem/Dx: Admission Diagnosis/Problem Admission Diagnosis/Problem Abdominal pain Source of Information: Family, Provider, RN History Limitations: Reports: Altered Mental Status (advanced dementia) - History of Present Illness Initial Comments - Free Text/Narative: chief complaint- weakness unable to obtain history of present illness due to Mr. Olguin's advance dementia History obtained from son who is at the bedside. Patient's son notes that he was called by [facility] patient having a fever this evening. There is been no falls or trauma. - September 2019. The Son notes he been confused for last 12 years or so. There is no recent antibiotics. And per the Son, patient has been vaccinated against Covid. Son has no further information denies any other related complaints or diarrhea. Onset: Today (Patient presents via EMS from home. Patient notes he does not feel well. He notes to chills. He has had no runny nose, sore throat, cough, headache, neck pain, chest pain, palpitations. ) Onset of Symptoms: Reports: Today Duration of Symptoms: Reports: Hour(s): Location: Reports: Generalized (weakness and fever) Severity: Mild Improves with: Reports: None Worsens with: Reports: Movement Associated Symptoms: Reports: Loss of Appetite (last meal at noon on 10/24/2020), Weakness - Related Data Allergies/Adverse Reactions: Allergies Allergy/AdvReac Type Severity Reaction Status Date / Time Sulfa (Sulfonamide Allergy Hives Verified 10/24/20 19:14 Antibiotics) Home Medications: Home Meds Aspirin [Ecotrin EC] 81 mg PO DAILY 08/06/20 [History] Divalproex Sodium [Depakote] 250 mg PO BEDTIME 08/06/20 [History] Donepezil HCl [Aricept] 10 mg PO DAILY 08/06/20 [History] Escitalopram Oxalate [Lexapro] 20 mg PO DAILY 08/06/20 [History] Melatonin 6 mg PO BEDTIME 08/06/20 [History] Memantine [Namenda] 10 mg PO BID 08/06/20 [History] Metoprolol Tartrate [Lopressor] 50 mg PO DAILY 08/06/20 [History] Mirtazapine [Remeron] 45 mg PO BEDTIME 08/06/20 [History] Nitroglycerin [Nitrostat] 0.4 mg SL ASDIRECTED 08/06/20 [History] Omeprazole 20 mg PO BID 08/06/20 [History] Acetaminophen [Pain Relief] 650 mg PO TID 10/24/20 [History] Cholecalciferol (Vitamin D3) [Vitamin D3] 1,000 unit PO DAILY 10/24/20 [History] Clotrimazole [Clotrimazole 1%] 1 applic TOP BID 10/24/20 [History] Metoprolol Tartrate 25 mg PO BEDTIME 10/24/20 [History] QUEtiapine [SEROquel] 12.5 mg PO TID 10/24/20 [History] Past Medical History HEENT History: Reports: Impaired Vision Cardiovascular History: Reports: Angina, CAD, High Cholesterol, Hypertension, Other (See Below) Other Cardiovascular History: prolonged Q-T interval on ECG Musculoskeletal History: Reports: Arthritis, Osteoarthritis Psychiatric History: Reports: Alzheimers Disease, Anxiety, Dementia, Depression Endocrine/Metabolic History: Reports: Obesity/BMI 30+ - Infectious Disease History Infectious Disease History: Reports: Chicken Pox, Measles, Mumps Social & Family History - Tobacco Use Tobacco Use Status *Q: Unknown Ever Used Tobacco - Caffeine Use Caffeine Use: Reports: None - Recreational Drug Use Recreational Drug Use: No - Living Situation & Occupation Living situation: Reports: , Extended Care Facility ( September 2019, enter [facility] November 2019. two Sons Trung and Alex) Occupation: Disabled H&P Review of Systems - Review of Systems: Review Of Systems: See Below General: Reports: ROS unobtainable, Other (Mr. Olguin just smiles and does not verbalize any complaints. Son gives report of symptoms) HEENT: Reports: Glasses, Other (full dentures) Cardiovascular: Reports: No Symptoms (Son reports no history of [place] or any cardiac events.) Gastrointestinal: Reports: Abdominal Pain Genitourinary: Reports: Incontinence (wears adult diapters) Skin: Reports: No Symptoms Psychiatric: Reports: Confusion Neurological: Reports: Confusion, Pre-Existing Deficit (Dementia for 12 years.) Hematologic/Lymphatic: Reports: No Symptoms Exam - Exam Exam: See Below - Vital Signs Vital Signs: Last Vital Signs Temp 100.8 F H 10/24/20 19:25 Pulse 90 10/24/20 22:49 Resp 16 10/24/20 19:25 BP 96/75 10/24/20 22:49 Pulse Ox 92 L 10/24/20 19:25 Weight: 240 lb - Exam General: Alert, Cooperative, Other (neat and pleasant elderly man- does not appear to be in any distress or pain. ) HEENT: PERRLA, Hearing Intact, Mucosa Moist & [place], Nares Patent, Normal Nasal Septum, Posterior Pharynx Clear, Conjunctiva Clear, EOMI, EACs Clear, TMs Clear Neck: Supple, Trachea Midline, 2 Lungs: Clear to Auscultation, Normal Respiratory Effort Cardiovascular: Regular Rate, Regular Rhythm, Normal S1, Normal S2 GI/Abdominal Exam: Normal Bowel Sounds, Soft, No Distention (abdomin obese.), Tender (right upper, middle and lower abdominal pain with palpation. no guarding.) (Male) Exam: Normal Inspection, Circumcised Rectal (Males) Exam: Deferred Back Exam: Normal Inspection, Full Range of Motion Extremities: Normal Inspection, Normal Range of Motion, Non-Tender, No Pedal Edema, Normal Capillary Refill Peripheral Pulses: 2+: Brachial (L), Brachial (R), Dorsalis Pedis (L), Dorsalis Pedis (R) Skin: Warm, Dry, Intact, Other (facial and abdominal flushing, warm to touch.) Neurological: Reflexes Equal Bilateral, Strength Equal Bilateral Neuro Extensive - Mental Status: Alert, Opens Eyes to Commands (smiling, pleasant, non-verbal during exam) Neuro Extensive - Motor, Sensory, Reflexes: Motor/Sensory Deficits Psychiatric: Alert - Patient Data Lab Results Last 24 hrs: Laboratory Results - last 24 hr 10/24/20 10/24/20 10/24/20 Range/Units 18:49 19:16 19:16 WBC 16.0 H (4.5-11.0) K/uL RBC 4.45 (4.30-5.90) M/uL Hgb 13.0 (12.0-15.0) g/dL Hct 38.5 L (40.0-54.0) % MCV 87 (80-98) fL MCH 29 (27-31) pg MCHC 34 (32-36) % Plt Count 120 L (150-400) K/uL Neut % (Auto) 88.0 H (36-66) % Lymph % (Auto) 3.8 L (24-44) % Lyon % (Auto) 8.1 H (2-6) % Eos % (Auto) 0.0 L (2-4) % Baso % (Auto) 0.1 (0-1) % PT 11.4 (9.5-12.0) sec INR 1.05 (0.80-1.20) Sodium (140-148) mmol/L Potassium (3.6-5.2) mmol/L Chloride (100-108) mmol/L Carbon Dioxide (21-32) mmol/L Anion Gap (5.0-14.0) mmol/L BUN (7-18) mg/dL Creatinine (0.8-1.3) mg/dL Est Cr Clr Drug Dosing mL/min Estimated GFR (MDRD) (>60) Glucose (74-106) mg/dL Lactic Acid (0.4-2.0) mmol/L Calcium (8.5-10.1) mg/dL Total Bilirubin (0.2-1.0) mg/dL AST (15-37) U/L ALT (12-78) U/L Alkaline Phosphatase (46-116) U/L Troponin I (0.000-0.056) ng/mL Total Protein (6.4-8.2) g/dL Albumin (3.4-5.0) g/dL Globulin (2.3-3.5) g/dL Albumin/Globulin Ratio (1.2-2.2) Procalcitonin ng/mL Urine Color (YELLOW) Urine Appearance (CLEAR) Urine pH (5.0-8.0) Ur Specific [place] (1.008-1.030) Urine Protein (NEGATIVE) mg/dL Urine Glucose (UA) (NEGATIVE) mg/dL Urine Ketones (NEGATIVE) mg/dL Urine Occult Blood (NEGATIVE) Urine Nitrite (NEGATIVE) Urine Bilirubin (NEGATIVE) Urine Urobilinogen (0.2-1.0) EU/dL Ur Leukocyte Esterase (NEGATIVE) Urine RBC (0-5) Urine WBC (0-5) Ur Epithelial Cells Amorphous Sediment Urine Bacteria Urine Mucus Influenza Type A RNA Negative (NEGATIVE) RSV RNA (INAAT) Negative (NEGATIVE) Influenza Type B RNA Negative (NEGATIVE) SARS-CoV-2 RNA (DANNY) Negative (NEGATIVE) 10/24/20 10/24/20 10/24/20 Range/Units 19:16 19:16 19:16 WBC (4.5-11.0) K/uL RBC (4.30-5.90) M/uL Hgb (12.0-15.0) g/dL Hct (40.0-54.0) % MCV (80-98) fL MCH (27-31) pg MCHC (32-36) % Plt Count (150-400) K/uL Neut % (Auto) (36-66) % Lymph % (Auto) (24-44) % [place] % (Auto) (2-6) % Eos % (Auto) (2-4) % Baso % (Auto) (0-1) % PT (9.5-12.0) sec INR (0.80-1.20) Sodium 134 L (140-148) mmol/L Potassium 3.8 (3.6-5.2) mmol/L Chloride 97 L (100-108) mmol/L Carbon Dioxide 27 (21-32) mmol/L Anion Gap 13.8 (5.0-14.0) mmol/L BUN 31 H D (7-18) mg/dL Creatinine 1.0 (0.8-1.3) mg/dL Est Cr Clr Drug Dosing 61.85 mL/min Estimated GFR (MDRD) > 60 (>60) Glucose 138 H (74-106) mg/dL Lactic Acid 1.7 (0.4-2.0) mmol/L Calcium 8.7 (8.5-10.1) mg/dL Total Bilirubin 0.7 (0.2-1.0) mg/dL AST 18 D (15-37) U/L ALT 55 (12-78) U/L Alkaline Phosphatase 87 (46-116) U/L Troponin I < 0.017 (0.000-0.056) ng/mL Total Protein 6.2 L (6.4-8.2) g/dL Albumin 2.7 L (3.4-5.0) g/dL Globulin 3.5 (2.3-3.5) g/dL Albumin/Globulin Ratio 0.8 L (1.2-2.2) Procalcitonin 3.74 H* ng/mL Urine Color (YELLOW) Urine Appearance (CLEAR) Urine pH (5.0-8.0) Ur Specific [place] (1.008-1.030) Urine Protein (NEGATIVE) mg/dL Urine Glucose (UA) (NEGATIVE) mg/dL Urine Ketones (NEGATIVE) mg/dL Urine Occult Blood (NEGATIVE) Urine Nitrite (NEGATIVE) Urine Bilirubin (NEGATIVE) Urine Urobilinogen (0.2-1.0) EU/dL Ur Leukocyte Esterase (NEGATIVE) Urine RBC (0-5) Urine WBC (0-5) Ur Epithelial Cells Amorphous Sediment Urine Bacteria Urine Mucus Influenza Type A RNA (NEGATIVE) RSV RNA (INAAT) (NEGATIVE) Influenza Type B RNA (NEGATIVE) SARS-CoV-2 RNA (DANNY) (NEGATIVE) 10/24/20 Range/Units 20:28 WBC (4.5-11.0) K/uL RBC (4.30-5.90) M/uL Hgb (12.0-15.0) g/dL Hct (40.0-54.0) % MCV (80-98) fL MCH (27-31) pg MCHC (32-36) % Plt Count (150-400) K/uL Neut % (Auto) (36-66) % Lymph % (Auto) (24-44) % Lyon % (Auto) (2-6) % Eos % (Auto) (2-4) % Baso % (Auto) (0-1) % PT (9.5-12.0) sec INR (0.80-1.20) Sodium (140-148) mmol/L Potassium (3.6-5.2) mmol/L Chloride (100-108) mmol/L Carbon Dioxide (21-32) mmol/L Anion Gap (5.0-14.0) mmol/L BUN (7-18) mg/dL Creatinine (0.8-1.3) mg/dL Est Cr Clr Drug Dosing mL/min Estimated GFR (MDRD) (>60) Glucose (74-106) mg/dL Lactic Acid (0.4-2.0) mmol/L Calcium (8.5-10.1) mg/dL Total Bilirubin (0.2-1.0) mg/dL AST (15-37) U/L ALT (12-78) U/L Alkaline Phosphatase (46-116) U/L Troponin I (0.000-0.056) ng/mL Total Protein (6.4-8.2) g/dL Albumin (3.4-5.0) g/dL Globulin (2.3-3.5) g/dL Albumin/Globulin Ratio (1.2-2.2) Procalcitonin ng/mL Urine Color Yellow (YELLOW) Urine Appearance Clear (CLEAR) Urine pH 6.0 (5.0-8.0) Ur Specific [place] >= 1.030 (1.008-1.030) Urine Protein 100 H (NEGATIVE) mg/dL Urine Glucose (UA) Negative (NEGATIVE) mg/dL Urine Ketones Negative (NEGATIVE) mg/dL Urine Occult Blood Negative (NEGATIVE) Urine Nitrite Negative (NEGATIVE) Urine Bilirubin Negative (NEGATIVE) Urine Urobilinogen 1.0 (0.2-1.0) EU/dL Ur Leukocyte Esterase Negative (NEGATIVE) Urine RBC 0-5 (0-5) Urine WBC 0-5 (0-5) Ur Epithelial Cells Rare Amorphous Sediment Few Urine Bacteria Rare Urine Mucus Rare Influenza Type A RNA (NEGATIVE) RSV RNA (INAAT) (NEGATIVE) Influenza Type B RNA (NEGATIVE) SARS-CoV-2 RNA (DANNY) (NEGATIVE) Result Diagrams: 10/24/20 19:16 10/24/20 19:16 Sepsis Event Note - Evaluation Sepsis Screening Result: Possible Sepsis Risk - Focused Exam Vital Signs: Vital Signs Temp Pulse Resp BP Pulse Ox 10/24/20 22:49 90 96/75 10/24/20 21:10 96 133/106 H 10/24/20 20:24 96 131/68 10/24/20 19:25 100.8 F H 101 H 16 151/79 H 92 L 10/24/20 18:40 100.8 F H 101 H 16 151/79 H 92 L - Problem List (1) Emphysematous cholecystitis SNOMED Code(s): 34519143 ICD Code: K81.0 - ACUTE CHOLECYSTITIS Status: Acute Priority: High Current Visit: Yes (2) Dementia with aggressive behavior SNOMED Code(s): 02888237, 38225280 ICD Code: F03.91 - UNSPECIFIED DEMENTIA WITH BEHAVIORAL DISTURBANCE Status: Chronic Priority: High Current Visit: Yes (3) Hypertension SNOMED Code(s): 41834038 ICD Code: I10 - ESSENTIAL (PRIMARY) HYPERTENSION Status: Chronic Priority: High Current Visit: Yes Qualifiers: Hypertension type: essential hypertension Qualified Code(s): I10 - Essential (primary) hypertension (4) CAD (coronary artery disease) SNOMED Code(s): 69444583 ICD Code: I25.10 - ATHSCL HEART DISEASE OF [place] CORONARY ARTERY W/O ANG PCTRS Status: Chronic Priority: Low Current Visit: Yes Problem List Initiated/Reviewed/Updated: Yes Orders Last 24hrs: Active Orders 24 hr Category Date Time Status Patient Status Manage Transfer [TRANSFER] Routine ADT 10/24/20 23:08 Active Cardiac Monitoring [RC] CONTINUOUS Care 10/24/20 23:15 Active EKG Documentation Completion [RC] ASDIRECTED Care 10/24/20 18:49 Active EKG Documentation Completion [RC] ASDIRECTED Care 10/24/20 18:51 Active Intake and Output [RC] QSHIFT Care 10/24/20 23:15 Active Notify Provider Consults [RC] ASDIRECTED Care 10/24/20 23:19 Active Notify Provider Vital Signs [RC] ASDIRECTED Care 10/24/20 23:15 Active Oxygen Therapy [RC] PRN Care 10/24/20 23:13 Active Pulse Oximetry [RC] PRN Care 10/24/20 23:15 Active RT Aerosol Therapy [RC] ASDIRECTED Care 10/24/20 23:19 Active Up With Assistance [RC] ASDIRECTED Care 10/24/20 23:12 Active VTE/DVT Education [RC] Per Unit Routine Care 10/24/20 23:13 Active Vital Signs [RC] Q4H Care 10/24/20 23:13 Active Consult to Physician [CONS] Urgent Cons 10/24/20 23:12 Ordered Nothing per Oral Now Diet [DIET] Diet 10/25/20 Breakfast Active Chest 1V Frontal [CR] Stat Exams 10/24/20 18:49 Taken BASIC METABOLIC PANEL,BMP [CHEM] AM Lab 10/25/20 05:11 Ordered CBC WITH AUTO DIFF [HEME] AM Lab 10/25/20 05:11 Ordered CULTURE BLOOD [BC] Urgent Lab 10/24/20 19:10 Received CULTURE BLOOD [BC] Urgent Lab 10/24/20 19:16 Received Albuterol [Proventil Neb Soln] Med 10/24/20 23:12 Ordered 2.5 mg NEB Q4H PRN Albuterol/Ipratropium [DuoNeb 3.0-0.5 MG/3 ML] Med 10/24/20 23:12 Ordered 3 ml NEB QID PRN Aztreonam [Azactam] 1 gm Med 10/25/20 06:00 Ordered Sodium Chloride 0.9% [Normal Saline] 50 ml IV Q8HR Clotrimazole [Lotrimin AF 1% Crm] Med 10/25/20 09:00 Ordered DOSE gm TOP BID Dextrose 5%-Lactated Ringers 1,000 ml Med 10/24/20 23:30 Ordered IV ASDIRECTED Divalproex Sodium Med 10/24/20 21:00 Ordered 250 mg PO BEDTIME Donepezil [Aricept] Med 10/25/20 09:00 Ordered 10 mg PO DAILY Escitalopram [Lexapro] Med 10/25/20 09:00 Ordered 20 mg PO DAILY Iopamidol [Isovue-300 (61%)] Med 10/24/20 21:00 Active 100 ml IV . DIRECTED LORazepam [Ativan] Med 10/24/20 23:12 Ordered 1 mg IV Q6H PRN Melatonin [Melatonin] Med 10/24/20 21:00 Ordered 6 mg PO BEDTIME Metoprolol Tartrate [Lopressor] Med 10/24/20 21:00 Ordered 25 mg PO BEDTIME Metoprolol Tartrate [Lopressor] Med 10/25/20 09:00 Ordered 50 mg PO DAILY Mirtazapine [Remeron] Med 10/24/20 21:00 Ordered 45 mg PO BEDTIME Morphine Med 10/24/20 23:12 Ordered 2 mg IVPUSH Q2H PRN Nitroglycerin [Nitrostat] Med 10/24/20 23:30 Ordered 0.4 mg SL ASDIRECTED Pantoprazole [ProTONIX IV] Med 10/25/20 09:00 Ordered 40 mg IV DAILY Piperacillin/Tazobactam [Zosyn] 3.375 gm Med 10/24/20 19:45 Active Sodium Chloride 0.9% [Normal Saline] 50 ml IV ONETIME Piperacillin/Tazobactam [Zosyn] 3.375 gm Med 10/25/20 02:10 Ordered Sodium Chloride 0.9% [Normal Saline] 50 ml IV Q6H QUEtiapine [SEROqueL] Med 10/24/20 09:00 Ordered 12.5 mg PO TID Sodium Chloride 0.9% [Normal Saline] 1,000 ml Med 10/24/20 19:00 Active IV ASDIRECTED Sodium Chloride 0.9% [Normal Saline] 80 ml Med 10/24/20 21:00 Active IV ASDIRECTED Sodium Chloride 0.9% [Saline Flush] Med 10/24/20 18:48 Active 10 ml FLUSH ASDIRECTED PRN Sodium Chloride 0.9% [Saline Flush] Med 10/24/20 18:48 Active 10 ml FLUSH ASDIRECTED PRN Blood Culture x2 Reflex Set [OM.PC] Urgent Oth 10/24/20 18:49 Ordered Isolation [COMM] Stat Oth 10/24/20 18:51 Ordered Saline Lock Insert [OM.PC] Stat Oth 10/24/20 18:49 Ordered Sequential Compression Device [OM.PC] Per Unit Routine Oth 10/24/20 23:15 Ordered Resuscitation Status Routine Resus Stat 10/24/20 23:12 Ordered EKG 12 Lead [EK] Stat Ther 10/24/20 18:49 Ordered Medication Orders Albuterol (Albuterol 0.083% 2.5 Mg/3 Ml Neb Soln) 2.5 mg NEB Q4H PRN PRN Reason: Shortness Of Breath/wheezing Albuterol/Ipratropium (Albuterol/Ipratropium 3.0-0.5 Mg/3 Ml Neb Soln) 3 ml NEB QID PRN PRN Reason: Shortness Of Breath/wheezing Clotrimazole (Clotrimazole 1% Crm 30 Gm Tube) gm TOP BID ANTIONE Divalproex Sodium (Divalproex Sodium Delayed-Release 250 Mg Tab.Cr) 250 mg PO BEDTIME ANTIONE Donepezil HCl (Donepezil 10 Mg Tab) 10 mg PO DAILY ANTIONE Escitalopram Oxalate (Escitalopram 20 Mg Tab) 20 mg PO DAILY ANTIONE Sodium Chloride (Normal Saline) 1,000 mls @ 500 mls/hr IV ASDIRECTED ANTIONE Last Admin: 10/24/20 19:12 Dose: 500 mls/hr Documented by: RAFAL Piperacillin Sod/Tazobactam (Sod 3.375 gm/ Sodium Chloride) 50 mls @ 100 mls/hr IV ONETIME ANTIONE Last Admin: 10/24/20 20:21 Dose: 100 mls/hr Documented by: RAFAL Sodium Chloride (Normal Saline) 80 mls @ 3 mls/sec IV ASDIRECTED ANTIONE Last Admin: 10/24/20 21:45 Dose: 3 mls/sec Documented by: TONNY Piperacillin Sod/Tazobactam (Sod 3.375 gm/ Sodium Chloride) 50 mls @ 100 mls/hr IV Q6H ANTIONE Aztreonam 1 gm/ Sodium (Chloride) 50 mls @ 100 mls/hr IV Q8HR ANTIONE Dextrose/Lactated Ringer's (Dextrose 5%-Lactated Ringers) 1,000 mls @ 125 mls/hr IV ASDIRECTED ANTIONE Iopamidol (Iopamidol 612 Mg/Ml 100 Ml Bottle) 100 ml IV . DIRECTED [facility] Last Admin: 10/24/20 21:45 Dose: 100 ml Documented by: TONNY Lorazepam (Lorazepam 2 Mg/Ml Sdv) 1 mg IV Q6H PRN PRN Reason: Nausea/Vomiting Metoprolol Tartrate (Metoprolol Tartrate 25 Mg Tab) 50 mg PO DAILY [facility] Metoprolol Tartrate (Metoprolol Tartrate 25 Mg Tab) 25 mg PO BEDTIME ANTIONE Morphine Sulfate (Morphine 2 Mg/Ml Syringe) 2 mg IVPUSH Q2H PRN PRN Reason: Pain (severe 7-10) Nitroglycerin (Nitroglycerin 0.4 Mg Tab.Sl) 0.4 mg SL ASDIRECTED [facility] Non-Formulary Medication (Mirtazapine [Remeron]) 45 mg PO BEDTIME [facility] Non-Formulary Medication (Melatonin [Melatonin]) 6 mg PO BEDTIME [facility] Pantoprazole Sodium (Pantoprazole 40 Mg Vial) 40 mg IV DAILY [facility] Quetiapine Fumarate (Quetiapine 25 Mg Tab) 12.5 mg PO TID [facility] Sodium Chloride (Sodium Chloride 0.9% 10 Ml Syringe) 10 ml FLUSH ASDIRECTED PRN PRN Reason: Keep Vein Open Last Admin: 10/24/20 19:11 Dose: 10 ml Documented by: RAFAL Sodium Chloride (Sodium Chloride 0.9% 10 Ml Syringe) 10 ml FLUSH ASDIRECTED PRN PRN Reason: Keep Vein Open Assessment/Plan Comment:: ASSESSMENT / PLAN- EMPHYSEMATOUS CHOLECYSTITIS Mr. Olguin arrives to ER via EMS from [facility] for evaluation of fever and weakness. Mr. Olguin had dementia for the past 12 years and is unable to give report of symptoms. Report given by Leroy Nino Vital signs stable TPR 100.8-101-18 B/P 151/79 O2 sat 92% Labs CBC -WBC 16.0, Hgb 13.0, plts 120, BMP Na+134, K+ 3.8, anion gap 13.8, BUN 31, creat 1.0, co2 27, Glucose 138, lactic acid 1.7, INR 1.7, UA normal, procalcitonin 3.74. EKG sinus rhythm Imaging Abdominal pelvic CT report Emphysematous cholecystitis, bibasilar lung atelectasis, right greater than left- see full report. Meds- IV fluids and IV Zoysn 3.375 given in ER prior to admission Consult to Surgeon Dr. Bashir- admitting orders NPO, IV fluids, IV Aztreonam 1 gram now then every 8 hours, Zoysn 3.375 every 6 hours, obtain consent from Guardian for surgery in am. Lap-chol with possible open mary. Leroy Nino signed consent forms in ER. Discussed plan of care with Leroy Nino. agree to admission and further care and treatment. Emphysematous cholecystitis - consult to Dr. Dusty Bashir Surgeon, admit orders given -admit -IV Zosyn 3.375 mg every 6 hours -IV Aztreonam 1 gram every 8 hours -IV D5LR at 125 ml/hr -NPO -obtain consent from Guardian for Laparoscopic Chol with possible open mary. -IV medication ordered for pain or nausea -am labs - CBC, BMP dementia with aggressive behavior- currently resident at [facility] since November 2019. noted to have a right ankle bracelet for monitoring. -ordered all his home medication -monitor for falls and wandering -needs direction for standing Hypertension with CAD -continue outpatient medications Maintenance issues -Home medications- ordered medications -Nutrition: NPO - last meal at noon on 10/24/2020 -Perez catheter: not indicated -DVT: SCD -PPI; IV Protonix 40 mg daily CODE STATUS: FULL Admission status: Admit 2 [facility] Admission justification. This patient will be admitted for inpatient services and is medically appropriate meeting medical necessity for inpatient admission as outlined in my documentation. I reasonably expect the patient will require inpatient services that span. Time over 2 midnights. I reasonably expect this patient to be discharged or tr ansferred within 96 hours after admission to the [facility]. Disposition: [facility] Guardian - Trung (son) call at [phone] for any changes or concerns. Primary care provider: [facility] Hospitalist: Dr. Jaramillo Surgery Service: Dr. Bashir - Mortality Measure Prognosis:: Good - Mortality Measure Prognosis:: Good
[2020-10-25] MEDS: QUEtiapine 25 MG Tab PO SCH ×5 (00:04→20:12)
[2020-10-25] MEDS ORDERED: Sodium Chloride 0.9% 50 ML ONE (00:06)
[2020-10-25] MEDS: Mirtazapine 15 MG Tab PO SCH ×2 (00:14→20:13)
[2020-10-25] MEDS: Melatonin 3 MG Tab PO SCH ×2 (00:15→20:13)
[2020-10-25] MEDS: Metoprolol Tartrate 25 MG Tab PO SCH ×2 (00:15→20:13)
[2020-10-25] MEDS: Divalproex Sodium Delayed-Release 250 MG Tab.CR PO SCH ×2 (00:15→20:12)
[2020-10-25] MEDS ORDERED: Piperacillin/Tazobactam 3.375 GM in Sodium Chloride 0.9% 50 ML IV SCH (02:10)
[2020-10-25] MEDS ORDERED: Clotrimazole 1% Crm 30 GM Tube TOP SCH ×2 (09:00)
[2020-10-25] MEDS ORDERED: Metoprolol Tartrate 25 MG Tab PO SCH (09:00)
--- NOTE | 2020-10-25 09:02 | CONS ---
DATE OF SERVICE: 10/25/2020 REFERRING PHYSICIAN: CONSULTING PHYSICIAN: Makenna Garrett PA-C HISTORY OF PRESENT ILLNESS: Leonel was asked to be seen for consultation. He has an emphysematous cholecystitis. He was admitted through ER. He has severe dementia. Past medical history and medications were reviewed. His son has already signed the consent for laparoscopic possible open cholecystectomy. Leonel is resting comfortably in bed, sound asleep. He did have a temperature max of 100.3, had 1 dose of IV Tylenol, and he has been afebrile since. REVIEW OF SYSTEMS: Remainder of review of systems negative for any pertinent positives and negatives. OBJECTIVE: GENERAL: Leonel Olguin is a 80-year-old male with severe dementia. VITAL SIGNS: Height 5 feet 11 inches, weight is 244 pounds. TPR at 03:15, 100.3; temperature rechecked at 04:50 at 98.6. Last pulse was 77, respirations 14, blood pressure 115/62. HEART: Regular rate and rhythm. LUNGS: Clear. No further exam due to the patient is resting very comfortably. ASSESSMENT: Emphysematous cholecystitis, sepsis, dementia with aggressive behavior, hypertension, and coronary artery disease. PLAN: 1. Consent has been signed for laparoscopic possible open cholecystectomy. He is getting Zosyn and Azactam antibiotics. It will be under general anesthesia, TAP block ordered. Remain n.p.o. Case to follow. 2. We will evaluate p.r.n. 3. Orders will be written postoperatively. Makenna Garrett PA-C /[id number]
--- NOTE | 2020-10-25 09:05 | CR ---
CHEST: Portable 10/24/2020 at 7:31 PM CLINICAL HISTORY:Chest pain COMPARISON:10/22/2020 FINDINGS: There is patchy density in the lingula. There is some patchy and nodular density in the right infrahilar region persisting. Heart size and pulmonary vascularity are normal. There are atherosclerotic changes in the aorta. Impression: New patchy density in the lingula suggest patchy atelectasis The patchy density in right infrahilar region persists. Please correlate with CT chest. This may represent atelectasis or infiltrate
[2020-10-25] MEDS: Piperacillin/Tazobactam/Dext 3.375 GM in Premix Bag 1 BAG IV SCH ×3 (09:11→20:06)
[2020-10-25] MEDS: Escitalopram 20 MG Tab PO SCH (09:58)
[2020-10-25] MEDS: Metoprolol Tartrate 50 MG Tab PO SCH (09:58)
[2020-10-25] MEDS: Donepezil 10 MG Tab PO SCH (09:59)
[2020-10-25] MEDS: Pantoprazole 40 MG Vial IV SCH (10:00)
[2020-10-25] MEDS ORDERED: Propofol 200 MG/20 ML SDV ONE (10:21)
[2020-10-25] MEDS ORDERED: fentaNYL 250 MCG/5 ML SDV ONE (10:21)
[2020-10-25] MEDS ORDERED: Dexamethasone 4 MG/ML SDV ONE (10:21)
[2020-10-25] MEDS ORDERED: Glycopyrrolate 0.2 MG/ML 5 ML MDV ONE (10:21)
[2020-10-25] MEDS ORDERED: Neostigmine Methylsulfate 1 MG/ML 5 ML Syringe ONE (10:21)
[2020-10-25] MEDS ORDERED: Rocuronium 50 MG/5 ML Vial ONE (10:21)
[2020-10-25] MEDS ORDERED: Succinylcholine 200 MG/10 ML MDV ONE (10:21)
[2020-10-25] MEDS ORDERED: Ondansetron 4 MG/2 ML SDV ONE (10:21)
[2020-10-25] MEDS ORDERED: Bupivacaine 0.5% 50 ML MDV ONE (12:08)
[2020-10-25] MEDS ORDERED: Lidocaine 1% with EPINEPHrine 1:100,000 50 ML MDV ONE (12:08)
[2020-10-25] MEDS ORDERED: Meropenem 500 MG SDV ONE (12:09)
[2020-10-25] MEDS ORDERED: Piperacillin/Tazobactam/Dext 3.375 GM in Premix Bag 1 BAG IV ONE (14:00)
[2020-10-25] MEDS ORDERED: Ondansetron 4 MG/2 ML SDV IVPUSH PRN ×2 (14:36→15:28)
[2020-10-25] MEDS ORDERED: Naloxone 0.4 MG/ML SDV IVPUSH PRN (14:36)
[2020-10-25] MEDS ORDERED: diphenhydrAMINE 50 MG/ML SDV IVPUSH PRN (14:36)
[2020-10-25] MEDS ORDERED: HYDROmorphone/Normal Saline 15 MG/30 ML PCA IV PRN (14:36)
[2020-10-25] MEDS ORDERED: diphenhydrAMINE 25 MG Cap PO PRN (14:36)
[2020-10-25] MEDS ORDERED: Naloxone 0.4 MG/ML SDV IV PRN (15:00)
[2020-10-25] MEDS: Dextrose 5%-Lactated Ringers 1,000 ML IV SCH (17:11)
[2020-10-25] MEDS: Acetaminophen 325 MG Tab PO SCH ×2 (17:19→22:18)
[2020-10-25] MEDS: Memantine 10 MG Tab PO SCH (20:13)
[2020-10-26] MEDS: Piperacillin/Tazobactam/Dext 3.375 GM in Premix Bag 1 BAG IV SCH ×4 (02:17→19:09)
[2020-10-26] MEDS: Dextrose 5%-Lactated Ringers 1,000 ML IV SCH ×2 (04:00→16:07)
[2020-10-26] MEDS: Acetaminophen 325 MG Tab PO SCH ×4 (04:56→21:08)
[2020-10-26] MEDS: QUEtiapine 25 MG Tab PO SCH ×3 (08:44→20:13)
[2020-10-26] MEDS: Escitalopram 20 MG Tab PO SCH (08:44)
[2020-10-26] MEDS: Metoprolol Tartrate 50 MG Tab PO SCH (08:44)
[2020-10-26] MEDS: Memantine 10 MG Tab PO SCH ×2 (08:44→20:13)
[2020-10-26] MEDS: Aspirin 81 MG Tab.EC PO SCH (08:44)
[2020-10-26] MEDS: Donepezil 10 MG Tab PO SCH (08:44)
[2020-10-26] MEDS: Pantoprazole 40 MG Vial IV SCH (08:52)
--- NOTE | 2020-10-26 09:25 | PN ---
DATE OF SERVICE: 10/26/2020 SUBJECTIVE: Leonel is postop day #1. Oral intake was around 10 mL. Urine output 620. CARLOS drain 1 put out 160 of a serosanguineous drainage. CARLOS drain #2 put out 460 of a light brown bile color. He has been resting comfortably. REVIEW OF SYSTEMS: Remainder of review of systems negative for any pertinent positives and negatives. OBJECTIVE: GENERAL: Leonel Olguin is a pleasant 80-year-old male, dementia, nonverbal right now. VITAL SIGNS: TPR is 97.2, 68, 16, blood pressure 114/72. HEENT: Negative. NECK: Supple. HEART: Regular rate and rhythm. LUNGS: Clear. ABDOMEN: Dressing dry and intact. CARLOS drain as above. He recently did remove his dressing and packing, but this was replaced per nursing staff. EXTREMITIES: Without peripheral edema. ASSESSMENT: Open cholecystectomy and drainage of periappendiceal abscess for acute necrotizing cholecystitis and cholelithiasis and pericholecystic abscess. Date of procedure: 10/25/2020. Surgeon: Dusty Bashir MD. PLAN: 1. Schedule and have consent signed for delayed primary closure, IV local sedation with TAP block, 10/27/2020, around 07:30. Surgeon: Dusty Bashir MD. N.p.o. after midnight. 2. Decrease IV to 100 mL per hour. 3. Continue use of incentive spirometer and ambulation. 4. We will evaluate p.r.n. or in a.m. Makenna Garrett PA-C /[id number]
[2020-10-26] MEDS: Divalproex Sodium Delayed-Release 250 MG Tab.CR PO SCH (20:07)
[2020-10-26] MEDS: Metoprolol Tartrate 25 MG Tab PO SCH (20:08)
[2020-10-26] MEDS: Melatonin 3 MG Tab PO SCH (20:12)
[2020-10-26] MEDS: Mirtazapine 15 MG Tab PO SCH (20:13)
[2020-10-27] MEDS: Piperacillin/Tazobactam/Dext 3.375 GM in Premix Bag 1 BAG IV SCH ×4 (01:33→19:48)
[2020-10-27] MEDS: hydrOXYzine HCL 100 MG/2 ML SDV IM PRN ×2 (01:51→22:54)
[2020-10-27] MEDS: Acetaminophen 325 MG Tab PO SCH ×5 (04:41→23:50)
[2020-10-27] MEDS: Dextrose 5%-Lactated Ringers 1,000 ML IV SCH ×2 (04:42→21:58)
[2020-10-27] MEDS ORDERED: Lidocaine 1% with EPINEPHrine 1:100,000 50 ML MDV ONE (06:25)
[2020-10-27] MEDS ORDERED: Bupivacaine 0.5% 50 ML MDV ONE (06:25)
[2020-10-27] MEDS ORDERED: Meropenem 500 MG SDV ONE (06:25)
[2020-10-27] MEDS ORDERED: fentaNYL 100 MCG/2 ML SDV ONE (07:02)
[2020-10-27] MEDS ORDERED: Propofol 200 MG/20 ML SDV ONE (07:03)
[2020-10-27] MEDS ORDERED: Lactated Ringers 1,000 ML ONE (08:34)
[2020-10-27] MEDS: Tamsulosin 0.4 MG Cap.ER PO SCH ×2 (10:43→21:46)
[2020-10-27] MEDS: QUEtiapine 25 MG Tab PO SCH ×3 (10:43→21:47)
[2020-10-27] MEDS: Docusate Sodium 100 MG Cap PO SCH ×2 (10:43→21:47)
[2020-10-27] MEDS: Bisacodyl 5 MG Tab PO SCH ×2 (10:43→21:47)
[2020-10-27] MEDS: Aspirin 81 MG Tab.EC PO SCH (10:44)
[2020-10-27] MEDS: Pantoprazole 40 MG Vial IV SCH (10:44)
[2020-10-27] MEDS: Donepezil 10 MG Tab PO SCH (10:44)
[2020-10-27] MEDS: Memantine 10 MG Tab PO SCH ×2 (10:45→21:47)
[2020-10-27] MEDS: Metoprolol Tartrate 50 MG Tab PO SCH (10:45)
[2020-10-27] MEDS: Escitalopram 20 MG Tab PO SCH (10:46)
[2020-10-27] MEDS: HYDROmorphone 2 MG Tab PO PRN ×3 (10:48→23:50)
[2020-10-27] MEDS: Mirtazapine 15 MG Tab PO SCH (21:46)
[2020-10-27] MEDS: Divalproex Sodium Delayed-Release 250 MG Tab.CR PO SCH (21:47)
[2020-10-27] MEDS: Melatonin 3 MG Tab PO SCH (21:48)
[2020-10-27] MEDS: Metoprolol Tartrate 25 MG Tab PO SCH (23:04)
[2020-10-28] MEDS: Piperacillin/Tazobactam/Dext 3.375 GM in Premix Bag 1 BAG IV SCH ×2 (01:12→08:08)
[2020-10-28] MEDS: HYDROmorphone 2 MG Tab PO PRN ×3 (04:05→21:27)
[2020-10-28] MEDS: Acetaminophen 325 MG Tab PO SCH ×4 (04:06→21:29)
[2020-10-28] MEDS: QUEtiapine 25 MG Tab PO SCH ×3 (08:03→21:29)
[2020-10-28] MEDS: Aspirin 81 MG Tab.EC PO SCH (08:03)
[2020-10-28] MEDS: Donepezil 10 MG Tab PO SCH (08:04)
[2020-10-28] MEDS: Memantine 10 MG Tab PO SCH ×2 (08:04→21:28)
[2020-10-28] MEDS: Docusate Sodium 100 MG Cap PO SCH ×2 (08:04→21:27)
[2020-10-28] MEDS: Escitalopram 20 MG Tab PO SCH (08:04)
[2020-10-28] MEDS: Bisacodyl 5 MG Tab PO SCH (08:05)
[2020-10-28] MEDS: Pantoprazole 40 MG Vial IV SCH (08:05)
[2020-10-28] MEDS: Metoprolol Tartrate 50 MG Tab PO SCH (08:05)
[2020-10-28] MEDS ORDERED: Dextrose 5%-Lactated Ringers 1,000 ML IV SCH (09:30)
[2020-10-28] MEDS ORDERED: Sodium Chloride 0.9% 1,000 ML IV SCH (09:45)
[2020-10-28] MEDS ORDERED: Potassium Phos in 0.9 % NaCl 15 MMOL in Premix Bag 1 BAG IV SCH ×2 (10:00)
[2020-10-28] MEDS ORDERED: Furosemide 20 MG/2 ML VIAL IVPUSH ONE (10:00)
[2020-10-28] MEDS ORDERED: Furosemide 20 MG Tab PO ONE (11:30)
[2020-10-28] MEDS ORDERED: Potassium Chloride 20 MEQ Tab.ER PO ONE (11:30)
[2020-10-28] MEDS: Lactobacillus Rhamnosus GG (Probiotic) Cap PO SCH ×2 (11:31→21:27)
[2020-10-28] MEDS: Amoxicillin/Clavulanate K 875-125 MG Tab PO SCH ×2 (11:32→21:27)
[2020-10-28] MEDS: Tamsulosin 0.4 MG Cap.ER PO SCH (21:27)
[2020-10-28] MEDS: Divalproex Sodium Delayed-Release 250 MG Tab.CR PO SCH (21:27)
[2020-10-28] MEDS: Mirtazapine 15 MG Tab PO SCH (21:28)
[2020-10-28] MEDS: Metoprolol Tartrate 25 MG Tab PO SCH (21:28)
[2020-10-28] MEDS: Melatonin 3 MG Tab PO SCH (21:28)
[2020-10-29] MEDS: Acetaminophen 325 MG Tab PO SCH ×4 (06:29→21:36)
[2020-10-29] MEDS ORDERED: Furosemide 20 MG Tab PO ONE (09:00)
[2020-10-29] MEDS ORDERED: Potassium Chloride 20 MEQ Tab.ER PO ONE (09:00)
[2020-10-29] MEDS: QUEtiapine 25 MG Tab PO SCH ×3 (09:00→21:35)
[2020-10-29] MEDS: Metoprolol Tartrate 50 MG Tab PO SCH (09:00)
[2020-10-29] MEDS: Escitalopram 20 MG Tab PO SCH (09:01)
[2020-10-29] MEDS: Amoxicillin/Clavulanate K 875-125 MG Tab PO SCH ×2 (09:01→21:31)
[2020-10-29] MEDS: Pantoprazole 40 MG Tab.CR PO SCH (09:01)
[2020-10-29] MEDS: Docusate Sodium 100 MG Cap PO SCH ×2 (09:01→21:34)
[2020-10-29] MEDS: Memantine 10 MG Tab PO SCH ×2 (09:01→21:35)
[2020-10-29] MEDS: Lactobacillus Rhamnosus GG (Probiotic) Cap PO SCH ×2 (09:01→21:31)
[2020-10-29] MEDS: Donepezil 10 MG Tab PO SCH (09:01)
[2020-10-29] MEDS: Levofloxacin 500 MG Tab PO SCH (09:02)
[2020-10-29] MEDS: Aspirin 81 MG Tab.EC PO SCH (09:02)
--- NOTE | 2020-10-29 09:03 | CRLUS ---
INDICATION: eval common bile duct for post op bile leak comparison is a ct from 10-24-20 Indication: Suspected mild leak. Evaluate common bile duct. Technique: Ultrasound of the abdomen limited. Comparison: CT of the chest, abdomen, and pelvis, 10/24/2020. Findings: The common bile duct measures 4 millimeters in dimension. There is no perihepatic ascites or drainable fluid collection by ultrasound. The liver measures 16.2 cm in length. Cholecystectomy. Echogenic foci within the gallbladder fossa may represent gas. See image 18, series 1. The main portal vein is patent. Impression: 1. There is no drainable fluid collection by ultrasound. 2. Echogenic foci within the gallbladder fossa, potentially gas. This is expected if there has been recent cholecystectomy. 3. Normal caliber common bile duct. No dilation of intrahepatic biliary radicles. Dictated by Kulwant Briggs MD @ 10/29/2020 9:01:54 AM Dictated by: Kulwant Briggs MD @ 10/29/2020 09:02:23 (Electronically Signed)
[2020-10-29] MEDS: HYDROmorphone 2 MG Tab PO PRN ×2 (13:23→21:54)
[2020-10-29] MEDS: Divalproex Sodium Delayed-Release 250 MG Tab.CR PO SCH (21:33)
[2020-10-29] MEDS: Tamsulosin 0.4 MG Cap.ER PO SCH (21:33)
[2020-10-29] MEDS: Metoprolol Tartrate 25 MG Tab PO SCH (21:34)
[2020-10-29] MEDS: Melatonin 3 MG Tab PO SCH (21:34)
[2020-10-29] MEDS: Mirtazapine 15 MG Tab PO SCH (21:35)
[2020-10-30] MEDS: Acetaminophen 325 MG Tab PO SCH ×5 (02:42→22:00)
[2020-10-30] MEDS: HYDROmorphone 2 MG Tab PO PRN ×4 (02:44→20:55)
[2020-10-30] MEDS ORDERED: Furosemide 20 MG Tab PO ONE (06:56)
[2020-10-30] MEDS ORDERED: Potassium Chloride 20 MEQ Tab.ER PO ONE (06:56)
[2020-10-30] MEDS: Lactobacillus Rhamnosus GG (Probiotic) Cap PO SCH ×2 (08:02→20:38)
[2020-10-30] MEDS: Escitalopram 20 MG Tab PO SCH (08:03)
[2020-10-30] MEDS: Docusate Sodium 100 MG Cap PO SCH ×2 (08:03→20:38)
[2020-10-30] MEDS: Metoprolol Tartrate 50 MG Tab PO SCH (08:03)
[2020-10-30] MEDS: QUEtiapine 25 MG Tab PO SCH ×3 (08:03→20:42)
--- NOTE | 2020-10-30 08:03 | CRLCT ---
INDICATION: Status post cholecystectomy; rule out bile leak. COMPARISON: CT chest, abdomen and pelvis October 24, 2020; ultrasound examination of the right upper quadrant of the abdomen October 29, 2020. TECHNIQUE: CT abdomen and pelvis without intravenous or oral contrast; coronal and sagittal reformats. FINDINGS: Atelectatic chain a changes both lung bases more on the right. No abnormal intra pulmonary nodular densities. Coronary artery calcifications. No focal hepatic or splenic pathology. Status post cholecystectomy with surgical drains in the right sub phrenic area as well as in the shira cholecystic area. Status post cholecystectomy. No fluid collections identified within the gallbladder fossa. No splenic pathology. No pancreatic pathology. No adrenal pathology. No kidney stones or obstructive uropathy. No retroperitoneal lymphadenopathy. No evidence of abdominal ascites. Tiny amount of free fluid in the pelvic peritoneal cavity. No pneumoperitoneum or intestinal obstruction. IMPRESSION: 1. Status post cholecystectomy without any CT evidence of fluid collections within the gallbladder fossa. 2. Surgical drains in the right upper quadrant of the abdomen. 3. Tiny amount of free fluid identified in the pelvic peritoneal cavity. Please note that all CT scans at this facility use dose modulation, iterative reconstruction, and/or weight-based dosing when appropriate to reduce radiation dose to as low as reasonably achievable. Dictated by Kermit Haley MD @ 10/30/2020 8:02:[address] Kermit Haley @ Oct 30 2020 8:02AM
[2020-10-30] MEDS: Amoxicillin/Clavulanate K 875-125 MG Tab PO SCH ×2 (08:04→20:37)
[2020-10-30] MEDS: Aspirin 81 MG Tab.EC PO SCH (08:04)
[2020-10-30] MEDS: Donepezil 10 MG Tab PO SCH (08:04)
[2020-10-30] MEDS: Memantine 10 MG Tab PO SCH ×2 (08:05→20:43)
[2020-10-30] MEDS: Levofloxacin 500 MG Tab PO SCH (08:05)
[2020-10-30] MEDS: Pantoprazole 40 MG Tab.CR PO SCH (08:05)
--- NOTE | 2020-10-30 08:20 | PN ---
DATE OF SERVICE: 10/28/2020 The patient has been afebrile with stable vital signs. He did move his bowels and we will begin a regular diet today. He is having fairly significant loose bowel movements, and with this we will add some probiotic. We will continue the present antibiotics since 1 CARLOS drain still puts out fair bit of bilious type drainage. The liver function test, however, remained good with alkaline phosphatase being normal and total bilirubin 0.4, AST and ALT both also are normal. So, I do not think, we are dealing with primary common duct problem but more likely related to the extensive cholecystitis and relatively unclean dissection as a result of that. His BNP is up somewhat, we will give him some Lasix today. However, his potassium and phosphate are both low and those will be supplemented, and we will continue to maximize activity and work with pulmonary toilet. Dusty Bashir MD /[id number]
--- NOTE | 2020-10-30 10:33 | PN ---
DATE OF SERVICE: 10/30/2020 SUBJECTIVE: Leonel does express pain getting in and out of bed. He was given Dilaudid twice and that seemed to help him quite a bit. Vital signs have been stable. Labs this morning show potassium of 3.4. BNP is 665. REVIEW OF SYSTEMS: Remainder of review of systems negative for any pertinent positives and negatives. OBJECTIVE: GENERAL: Leonel Olguin is a 80-year-old male. He is resting comfortably in bed, difficult to arouse. Heart: Regular rate and rhythm. Lungs: Clear. Abdomen: Negative. Dressings dry and intact. He has 2 CAROLS drains, 1 is draining a bile color. LABORATORY DATA: Potassium this morning was 3.4. BNP 665. ASSESSMENT: Delayed primary closure on 10/27/2020, and open cholecystectomy and drainage of periappendiceal abscess for acute necrotizing cholecystitis and cholelithiasis and pericholecystic abscess. Date of procedure: 10/25/2020. Surgeon: Dusty Bashir MD. PLAN: 1. Check CT of abdomen and pelvis to rule out bile leak. No contrast. 2. Lasix 20 mg p.o. 1 time today. 3. KCl 60 mEq oral 1 time today. 4. Check CBC, CMP, mag, phos, and BNP in a.m. 5. We will evaluate p.r.n. or in a.m. Makenna Garrett PA-C /[id number]
--- NOTE | 2020-10-30 13:23 | OR ---
DATE OF PROCEDURE: 10/27/2020 SURGEON: Dusty Bashir MD PREOPERATIVE DIAGNOSIS: Open abdominal incision. POSTOPERATIVE DIAGNOSIS: Open abdominal incision. OPERATIVE PROCEDURE: Delayed primary closure of open abdominal incision. ANESTHESIA: IV sedation. INDICATIONS FOR PROCEDURE: The patient is a 80-year-old status post an open cholecystectomy for a necrotic gallbladder. The wound was obviously at high risk for wound infection if primary closure was undertaken. Therefore, it was packed open for a planned delayed primary closure at this time. Potential risks including bleeding and infection were reviewed with the patient's son and he wishes to proceed. DETAILS OF PROCEDURE: The patient was taken to the operating room, placed in a supine position with sitting up roughly 30 degrees to minimize aspiration risk. The operative dressing was taken down and wound found to be clean. Incision was then prepped and draped, anesthetized with 1% lidocaine, mixed with Marcaine, and irrigated with a meropenem- containing saline solution. The incision was then closed with 2 layers of 3-0 and 4-0 Vicryl stitch deep and then elnea for the skin. Two transverse abdominis plane blocks were placed both on the right side given this was a right subcostal incision and the patient taken to the recovery room in satisfactory condition. There were no evident complications. Dusty Bashir MD /[id number]
--- NOTE | 2020-10-30 14:01 | PN ---
DATE OF SERVICE: 10/27/2020 The patient has been afebrile with stable vital signs. Level of alertness is about status quo with underlying dementia and confusion. Otherwise, he is clinically doing fairly well. He still has a significant bile leak present. We will recheck some labs tomorrow. Otherwise, the patient underwent a delayed primary closure without evident problem and we will continue the present antibiotics pending C and S adjustments and begin some bowel stimulation today. We advance the diet other than giving him some Ensure Clear today. Dusty Bashir MD /[id number]
--- NOTE | 2020-10-30 15:17 | PN ---
DATE OF SERVICE: 10/29/2020 The patient has been afebrile with stable vital signs. No major problems were noted overnight. He is quite combative and confused. He is moving his bowels and urine output appeared to be satisfactory. Culture has come back showing, amongst other things, Staph hominis, which is unlikely to be covered by the Augmentin. It is sensitive to Levaquin and we will add that just to see antibiotic orally. Otherwise, continues to have a fairly large output of bile in the drain in the area of the gallbladder bed. We will obtain an ultrasound today to evaluate the common bile duct. It would be very difficult to get an MRCP in this case, but hopefully we by some chance can get a clear view of the common bile duct to rule out there being stones or other problems in that regard. Dusty Bashir MD /[id number]
[2020-10-30] MEDS: Divalproex Sodium Delayed-Release 250 MG Tab.CR PO SCH (20:39)
[2020-10-30] MEDS: Tamsulosin 0.4 MG Cap.ER PO SCH (20:40)
[2020-10-30] MEDS: Melatonin 3 MG Tab PO SCH (20:41)
[2020-10-30] MEDS: Mirtazapine 15 MG Tab PO SCH (20:41)
[2020-10-30] MEDS: Metoprolol Tartrate 25 MG Tab PO SCH (20:42)
[2020-10-31] MEDS: Acetaminophen 325 MG Tab PO SCH ×3 (05:25→15:02)
[2020-10-31] MEDS ORDERED: Furosemide 20 MG Tab PO ONE (07:45)
--- NOTE | 2020-10-31 08:21 | PN ---
DATE OF SERVICE: 10/31/2020 SUBJECTIVE: Leonel is confused due to dementia. Oral intake 1220. Output, unable to measure due to incontinence. CARLOS drain #1 put out 35 mL of a light pink serosanguineous and drain #2 put out 540 mL of a bile-colored drainage. REVIEW OF SYSTEMS: Remainder of review of systems negative for any pertinent positives and negatives. OBJECTIVE: GENERAL: Leonel Olguin is a pleasant 80-year-old male. He is resting in bed. VITAL SIGNS: TPR is 97, 72, 16, blood pressure is 135/62. HEENT: Negative. NECK: Supple. HEART: Regular rate and rhythm. LUNGS: Clear. ABDOMEN: Negative CARLOS drains as above. Binder on. EXTREMITIES: Without peripheral edema. ASSESSMENT: 1. Delayed primary closure on 10/27/2020. 2. Open cholecystectomy and drainage of periappendiceal abscess for acute necrotizing cholecystitis and cholelithiasis and pericolonic abscess. 3. Date of procedure: 10/25/2020. Surgeon: Dusty Bashir MD. PLAN: 1. Plan discharge in a.m. 2. Will need CARLOS drain care to empty, strip, measure, and record CARLOS drainage along with color 4 times a day. 3. Lasix 20 mg p.o. 1 time. 4. KCl 60 mEq p.o. 1 time. 5. Check CBC, CMP, mag, phos in a.m. Makenna Garrett PA-C /[id number]
[2020-10-31] MEDS ORDERED: Potassium Chloride 20 MEQ Tab.ER PO SCH (09:00)
[2020-10-31] MEDS: Levofloxacin 500 MG Tab PO SCH (09:16)
[2020-10-31] MEDS: Docusate Sodium 100 MG Cap PO SCH ×2 (09:16→20:20)
[2020-10-31] MEDS: Lactobacillus Rhamnosus GG (Probiotic) Cap PO SCH ×2 (09:16→20:20)
[2020-10-31] MEDS: Pantoprazole 40 MG Tab.CR PO SCH (09:16)
[2020-10-31] MEDS: Aspirin 81 MG Tab.EC PO SCH (09:18)
[2020-10-31] MEDS: Metoprolol Tartrate 50 MG Tab PO SCH (09:18)
[2020-10-31] MEDS: Amoxicillin/Clavulanate K 875-125 MG Tab PO SCH ×2 (09:18→20:20)
[2020-10-31] MEDS: Escitalopram 20 MG Tab PO SCH (09:18)
[2020-10-31] MEDS: Donepezil 10 MG Tab PO SCH (09:18)
[2020-10-31] MEDS: QUEtiapine 25 MG Tab PO SCH ×3 (09:19→20:20)
[2020-10-31] MEDS: Memantine 10 MG Tab PO SCH ×2 (09:19→20:20)
[2020-10-31] MEDS: HYDROmorphone 2 MG Tab PO PRN (15:02)
[2020-10-31] MEDS: Divalproex Sodium Delayed-Release 250 MG Tab.CR PO SCH (20:20)
[2020-10-31] MEDS: Tamsulosin 0.4 MG Cap.ER PO SCH (20:20)
[2020-10-31] MEDS: Melatonin 3 MG Tab PO SCH (20:20)
[2020-10-31] MEDS: Mirtazapine 15 MG Tab PO SCH (20:20)
[2020-10-31] MEDS: Metoprolol Tartrate 25 MG Tab PO SCH (20:21)
[2020-11-01] MEDS: Acetaminophen 325 MG Tab PO SCH ×6 (00:03→21:33)
[2020-11-01] MEDS ORDERED: Furosemide 20 MG Tab PO ONE ×2 (07:45→11:00)
--- NOTE | 2020-11-01 09:14 | PN ---
DATE OF SERVICE: 11/01/2020 SUBJECTIVE: His pain has been well managed. Vital signs stable. Oral intake 920 and he is voiding independently. CARLOS drains, the #1 has put out very little, and #2 put out 625 of a bile color drainage. REVIEW OF SYSTEMS: Remainder of review of systems negative for any pertinent positives and negatives. OBJECTIVE: GENERAL: Leonel is a pleasant 80-year-old male. He is sleeping. VITAL SIGNS: TPR is 97.6, 74, 16, blood pressure 119/59. HEENT: Negative. NECK: Supple. HEART: Regular rate and rhythm. LUNGS: Clear. ABDOMEN: CARLOS is as above. EXTREMITIES: Negative. ASSESSMENT: Delayed primary closure of open abdominal incision, 10/27/2020. Surgeon: Dusty Bashir MD. Open cholecystectomy and drainage of periappendiceal abscess for acute necrotizing cholecystitis and cholelithiasis and pericolonic abscess. Date of procedure: 10/25/2020. Surgeon: Dusty Bashir MD. PLAN: 1. Waiting for mcc placement due to CARLOS drain care. 2. Continue to monitor. 3. Check CBC, CMP, mag, phos in a.m., and BNP. 4. Lasix 20 mg p.o. 1 time. 5. We will evaluate p.r.n. or in a.m. Makenna Garrett PA-C /[id number]
[2020-11-01] MEDS: Levofloxacin 500 MG Tab PO SCH (10:37)
[2020-11-01] MEDS: Pantoprazole 40 MG Tab.CR PO SCH (10:37)
[2020-11-01] MEDS: QUEtiapine 25 MG Tab PO SCH ×3 (10:38→20:32)
[2020-11-01] MEDS: Memantine 10 MG Tab PO SCH ×2 (10:38→20:32)
[2020-11-01] MEDS: Amoxicillin/Clavulanate K 875-125 MG Tab PO SCH ×2 (10:38→20:31)
[2020-11-01] MEDS: Lactobacillus Rhamnosus GG (Probiotic) Cap PO SCH ×2 (10:38→20:31)
[2020-11-01] MEDS: Donepezil 10 MG Tab PO SCH (10:38)
[2020-11-01] MEDS: Aspirin 81 MG Tab.EC PO SCH (10:38)
[2020-11-01] MEDS: Docusate Sodium 100 MG Cap PO SCH ×2 (10:38→20:31)
[2020-11-01] MEDS: Metoprolol Tartrate 50 MG Tab PO SCH (10:39)
[2020-11-01] MEDS: Escitalopram 20 MG Tab PO SCH (10:40)
[2020-11-01] MEDS: Melatonin 3 MG Tab PO SCH (20:32)
[2020-11-01] MEDS: Metoprolol Tartrate 25 MG Tab PO SCH (20:32)
[2020-11-01] MEDS: Tamsulosin 0.4 MG Cap.ER PO SCH (20:33)
[2020-11-01] MEDS: Divalproex Sodium Delayed-Release 250 MG Tab.CR PO SCH (20:33)
[2020-11-01] MEDS: Mirtazapine 15 MG Tab PO SCH (20:34)
[2020-11-01] MEDS: HYDROmorphone 2 MG Tab PO PRN (23:13)
[2020-11-02] MEDS: Acetaminophen 325 MG Tab PO SCH ×4 (05:09→22:27)
[2020-11-02] MEDS: Levofloxacin 500 MG Tab PO SCH (08:28)
[2020-11-02] MEDS: Pantoprazole 40 MG Tab.CR PO SCH (08:28)
--- NOTE | 2020-11-02 08:34 | PN ---
DATE OF SERVICE: 11/02/2020 SUBJECTIVE: Leonel is stable. Oral intake is 2200, output independent. CARLOS drain #2 put out 550 of a bile-colored drainage. CARLOS drain #1 is scant. He has been up sitting in the chair. Had slept well last night. Labs were reviewed. OBJECTIVE: GENERAL: Leonel is a 80-year-old male. VITAL SIGNS: TPR is 97.9, 81, 18. Blood pressure is 118/63. HEENT: Negative. NECK: Supple. HEART: Regular rate and rhythm. LUNGS: Clear. ABDOMEN: CARLOS drain as above. EXTREMITIES: Without peripheral edema. ASSESSMENT: 1. Delayed primary closure of open abdominal incision, 10/27/2020. Surgeon: Dusty Bashir MD. 2. Open cholecystectomy and drainage of periappendiceal abscess for acute necrotizing cholecystitis and cholelithiasis and pericolonic abscess. Date of procedure 10/25/2020. Surgeon: Dusty Bashir MD. PLAN: Continue to monitor CARLOS drains, amount and color. Check CBC, CMP, mag, phos, and BNP in a.m. Awaiting senior care placement. We will evaluate p.r.n. or in a.m. Makenna Garrett PA-C /[id number]
[2020-11-02] MEDS: QUEtiapine 25 MG Tab PO SCH ×3 (09:15→22:26)
[2020-11-02] MEDS: Amoxicillin/Clavulanate K 875-125 MG Tab PO SCH ×2 (09:15→22:24)
[2020-11-02] MEDS: Escitalopram 20 MG Tab PO SCH (09:15)
[2020-11-02] MEDS: Donepezil 10 MG Tab PO SCH (09:15)
[2020-11-02] MEDS: Docusate Sodium 100 MG Cap PO SCH ×2 (09:15→22:24)
[2020-11-02] MEDS: Lactobacillus Rhamnosus GG (Probiotic) Cap PO SCH ×2 (09:15→22:24)
[2020-11-02] MEDS: Memantine 10 MG Tab PO SCH ×2 (09:16→22:25)
[2020-11-02] MEDS: Furosemide 20 MG Tab PO SCH (09:16)
[2020-11-02] MEDS: Aspirin 81 MG Tab.EC PO SCH (09:16)
[2020-11-02] MEDS: Metoprolol Tartrate 50 MG Tab PO SCH (09:17)
[2020-11-02] MEDS: Mirtazapine 15 MG Tab PO SCH (22:24)
[2020-11-02] MEDS: Tamsulosin 0.4 MG Cap.ER PO SCH (22:25)
[2020-11-02] MEDS: Melatonin 3 MG Tab PO SCH (22:25)
[2020-11-02] MEDS: Divalproex Sodium Delayed-Release 250 MG Tab.CR PO SCH (22:27)
[2020-11-02] MEDS: Metoprolol Tartrate 25 MG Tab PO SCH (22:27)
[2020-11-03] MEDS: Acetaminophen 325 MG Tab PO SCH ×4 (04:50→21:00)
[2020-11-03] MEDS: Levofloxacin 500 MG Tab PO SCH (08:35)
[2020-11-03] MEDS: Docusate Sodium 100 MG Cap PO SCH ×2 (08:37→20:41)
[2020-11-03] MEDS: QUEtiapine 25 MG Tab PO SCH ×3 (08:37→20:41)
[2020-11-03] MEDS: Furosemide 20 MG Tab PO SCH (08:38)
[2020-11-03] MEDS: Memantine 10 MG Tab PO SCH ×2 (08:38→20:41)
[2020-11-03] MEDS: Pantoprazole 40 MG Tab.CR PO SCH (08:38)
[2020-11-03] MEDS: Escitalopram 20 MG Tab PO SCH (08:38)
[2020-11-03] MEDS: Lactobacillus Rhamnosus GG (Probiotic) Cap PO SCH ×2 (08:38→20:40)
[2020-11-03] MEDS: Aspirin 81 MG Tab.EC PO SCH (08:39)
[2020-11-03] MEDS: Amoxicillin/Clavulanate K 875-125 MG Tab PO SCH ×2 (08:39→20:40)
[2020-11-03] MEDS: Donepezil 10 MG Tab PO SCH (08:39)
[2020-11-03] MEDS: Metoprolol Tartrate 50 MG Tab PO SCH (08:40)
[2020-11-03] MEDS: Metoprolol Tartrate 25 MG Tab PO SCH (20:40)
[2020-11-03] MEDS: Mirtazapine 15 MG Tab PO SCH (20:41)
[2020-11-03] MEDS: Melatonin 3 MG Tab PO SCH (20:41)
[2020-11-03] MEDS: Divalproex Sodium Delayed-Release 250 MG Tab.CR PO SCH (20:42)
[2020-11-03] MEDS: Tamsulosin 0.4 MG Cap.ER PO SCH (20:42)
[2020-11-04] MEDS: Acetaminophen 325 MG Tab PO SCH ×4 (04:18→21:29)
[2020-11-04] MEDS: Pantoprazole 40 MG Tab.CR PO SCH (07:37)
[2020-11-04] MEDS: Levofloxacin 500 MG Tab PO SCH (07:38)
[2020-11-04] MEDS: QUEtiapine 25 MG Tab PO SCH ×3 (09:35→21:28)
[2020-11-04] MEDS: Docusate Sodium 100 MG Cap PO SCH ×2 (09:35→21:29)
[2020-11-04] MEDS: Lactobacillus Rhamnosus GG (Probiotic) Cap PO SCH ×2 (09:35→21:30)
[2020-11-04] MEDS: Donepezil 10 MG Tab PO SCH (09:35)
[2020-11-04] MEDS: Aspirin 81 MG Tab.EC PO SCH (09:36)
[2020-11-04] MEDS: Memantine 10 MG Tab PO SCH ×2 (09:36→21:30)
[2020-11-04] MEDS: Amoxicillin/Clavulanate K 875-125 MG Tab PO SCH ×2 (09:36→21:29)
[2020-11-04] MEDS: Furosemide 20 MG Tab PO SCH (09:36)
[2020-11-04] MEDS: Escitalopram 20 MG Tab PO SCH (09:36)
--- NOTE | 2020-11-04 09:36 | OR ---
DATE OF PROCEDURE: 10/25/2020 SURGEON: Dusty Bashir MD PREOPERATIVE DIAGNOSIS: Acute cholecystitis. POSTOPERATIVE DIAGNOSES: 1. Acute necrotizing cholecystitis and cholelithiasis. 2. Pericholecystic abscess. OPERATIVE PROCEDURES: Exploratory laparotomy with: 1. Open cholecystectomy (35857). 2. Drainage of pericholecystic abscess (55367). ANESTHESIA: General. MEDICAL ASSISTANT PRN: Makenna Garrett PA-C INDICATIONS FOR PROCEDURE: A 80-year-old, presenting with acute cholecystitis. After initial admission and IV antibiotics, the patient did undergo a cholecystectomy. Because of the large mass effect present in the right subcostal area, it was felt that an open approach might be more appropriate in this case. The plan is to proceed with an open cholecystectomy with other procedures as indicated. Potential risks including bleeding, infection, injury to underlying viscera, problems with migration of the common bile duct stones as well as injury to common bile duct were reviewed with the patient's son as the patient has significant dementia and he wishes to proceed. Potential risks of mortality were also gone over and the son wishes to proceed. DETAILS OF PROCEDURE: The patient was taken to the operating room, and after general endotracheal anesthesia was induced, a Perez catheter was inserted and the abdomen prepped and draped. Right subcostal incision was made and carried down through the skin, subcutaneous tissue, and through the musculofascial layers and peritoneum. Upon entering the peritoneal cavity, as expected there was a dense adherence of the omentum to the gallbladder. This was peeled off primarily manually. On the inferior and posterior aspect of the gallbladder, there was a purulent collection. Cultures of this were obtained of this pericholecystic abscess. The gallbladder was noted to have some patchy mucosa on its surface was noted to have diffuse mucosal necrosis through the entire surface of the gallbladder. The gallbladder was initially bluntly dissected off the gallbladder fossa, at that point was more or less attached to the remaining cystic artery and cystic ductal type areas. The gallbladder was opened at this point and the contents evacuated. A malodorous fluid was present and cultures of this were also obtained. At that point, the cystic artery was identified and divided with the GILMAR stapler with remaining cystic duct present. The cystic duct was divided flush with the gallbladder at visualization of the confluence between the gallbladder and the common bile duct and the gallbladder was then delivered from the field. The area of dissection was then inspected. No bleeding or bile leaks were seen. All areas were irrigated with meropenem-containing saline solution, and at that point, 2 Nelson-P[place]agua drains were placed, one in the area of the gallbladder fossa area of the cystic duct closure site and the other in the right subphrenic area in the event that there might be some drainage in that area that was otherwise not flushed by the first drain. The posterior peritoneum and fascia were then closed with #2 Vicryl stitch as was the anterior fascia. Skin and subcutaneous tissue were felt to be high risk for a wound infection if these were closed primarily, so these were packed open with Iodoform gauze. Prior to closure, transversus abdominis plane blocks were placed both on the right side going a little bit up superior and a little bit inferior to the incision, and the patient was taken to the recovery room in satisfactory condition. Drains were sutured to the skin with some 3- 0 Vicryl stitch. Physician sales assistant entertainment and media, Makenna Garrett, played an essential role in assisting in this case, helping to position the patient, retract structures as needed, as well as suturing and cutting sutures when indicated. Her presence improved patient safety and decreased operative time. Dusty Bashir MD /[id number]
[2020-11-04] MEDS: Metoprolol Tartrate 50 MG Tab PO SCH (09:37)
[2020-11-04] MEDS: Metoprolol Tartrate 25 MG Tab PO SCH (21:28)
[2020-11-04] MEDS: Mirtazapine 15 MG Tab PO SCH (21:28)
[2020-11-04] MEDS: Melatonin 3 MG Tab PO SCH (21:29)
[2020-11-04] MEDS: Divalproex Sodium Delayed-Release 250 MG Tab.CR PO SCH (21:30)
[2020-11-04] MEDS: Tamsulosin 0.4 MG Cap.ER PO SCH (21:30)
[2020-11-05] MEDS: Acetaminophen 325 MG Tab PO SCH ×4 (04:45→21:37)
--- NOTE | 2020-11-05 07:14 | PN ---
DATE OF SERVICE: 11/03/2020 The patient has been clinically stable. The bile leak remains roughly the same, around 400 mL. Plan is to send him to a residential on Thursday. We will give him probably another week or so after that to see if the bile leak stopped or is slowing down significantly. If not, we will set him up for an ERCP at that point. Dusty Bashir MD /[id number]
[2020-11-05] MEDS: Levofloxacin 500 MG Tab PO SCH (07:19)
[2020-11-05] MEDS: Pantoprazole 40 MG Tab.CR PO SCH (07:19)
[2020-11-05] MEDS: Docusate Sodium 100 MG Cap PO SCH ×2 (08:08→21:37)
[2020-11-05] MEDS: Donepezil 10 MG Tab PO SCH (08:08)
[2020-11-05] MEDS: Aspirin 81 MG Tab.EC PO SCH (08:08)
[2020-11-05] MEDS: Escitalopram 20 MG Tab PO SCH (08:09)
[2020-11-05] MEDS: Furosemide 20 MG Tab PO SCH (08:09)
[2020-11-05] MEDS: Amoxicillin/Clavulanate K 875-125 MG Tab PO SCH ×2 (08:09→21:37)
[2020-11-05] MEDS: Metoprolol Tartrate 50 MG Tab PO SCH (08:09)
[2020-11-05] MEDS: Lactobacillus Rhamnosus GG (Probiotic) Cap PO SCH ×2 (08:09→21:37)
[2020-11-05] MEDS: QUEtiapine 25 MG Tab PO SCH ×3 (08:10→21:42)
[2020-11-05] MEDS: Memantine 10 MG Tab PO SCH ×2 (08:10→21:39)
--- NOTE | 2020-11-05 08:32 | DISCH ---
ADMISSION DIAGNOSES: Nausea; vomiting; emphysematous cholecystitis; dementia with aggressive behavior; coronary artery disease; hypertension. DISCHARGE DIAGNOSES: 1. Open cholecystectomy and drainage of periappendiceal abscess for acute necrotizing cholecystitis and cholelithiasis and pericolonic abscess. Date of procedure, 10/25/2020. Surgeon: Dusty Bashir MD. 2. Delayed primary closure of open abdominal incision, 10/27/2020. Surgeon: Dusty Bashir MD. HISTORY: Leonel Olguin is a 80-year-old male with dementia, who lives at [facility]. He presented to the emergency room on 10/24/2020 with fever and abdominal pain. After preoperative evaluation and discussion of possible risks and possible complications, Leonel's son signed the consent form. Leonel had his surgery on 10/25/2020. He had no operative complications. He had delayed primary closure on 10/27/2020. The gallbladder cultures grew out viridans Streptococcus, Staphylococcus hominis, and he was on appropriate IV antibiotics. His IV did infiltrate, so he was taking oral medications. Vital signs were stable. Oral intake was adequate. He did have a bile leak, and he has 2 CARLOS drains, which he will be going home with. The CARLOS drain #2 has put out large volumes, but has decreased considerably, and at 24 hours before discharge, CARLOS drain #2 put out 150 mL of a bile-colored drainage, and CARLOS drain #1 put out serosanguineous. Oral intake has been good. At 12:50, urine output has been incontinent. Last labs, hemoglobin was 10.6, glucose 104, and potassium was 3.8. With Leonel going home with the CARLOS drain, he was unable to go to [facility] and will be discharged today, 11/05/2020, in stable condition to another facility. PHYSICAL EXAMINATION: GENERAL: Leonel Olguin is a pleasant 80-year-old male. Height is 5 feet 10.87 inches. Weight is 244 pounds. VITAL SIGNS: TPR is 96.2, 70, 16. Blood pressure 112/62. HEENT: Negative. NECK: Supple. HEART: Regular rate and rhythm. LUNGS: Clear. ABDOMEN: [place] are removed. Steri-Strips are on it. He has 2 CARLOS drains as stated above. Abdominal binder is on. EXTREMITIES: Without peripheral edema. DISPOSITION: Discharged to inpatient rehabilitation center. CONDITION: Stable. FOLLOWUP: He is to follow up with Dusty Bashir MD, on 11/14/2020 at 10 a.m. HOME MEDICATIONS: 1. Augmentin 875 mg 1 tablet p.o. b.i.d., #20. 2. Culturelle 2 capsules p.o. b.i.d., #120. 3. 500 mg p.o. daily, #10. 4. Tylenol 650 mg q.6 hours scheduled. 5. Aspirin 81 mg p.o. daily. 6. Divalproex sodium 250 mg p.o. bedtime. 7. Colace 100 mg p.o. b.i.d. 8. Aricept 10 mg p.o. as scheduled daily. 9. Lexapro 20 mg p.o. daily. 10.Nitrostat 0.4 mg sublingual as directed. 11.Omeprazole 20 mg p.o. b.i.d. 12.Mirtazapine, Remeron 45 mg p.o. at bedtime. 13.Metoprolol tartrate, Lopressor 50 mg p.o. daily. 14.Namenda, memantine 10 mg p.o. b.i.d. 15.Melatonin 6 mg p.o. at bedtime. 16.Lexapro 20 mg p.o. daily. 17.Aricept, donepezil 10 mg p.o. daily. 18.Depakote 250 mg p.o. at bedtime. 19.Clotrimazole 1% cream 1 applicator topical b.i.d. 20.Vitamin D3 1000 units p.o. daily. 21.Seroquel 12.5 mg p.o. t.i.d. 22.Metoprolol tartrate 25 mg p.o. at bedtime. DIET: Regular diet as tolerated. Drink 8 to 10 glasses of water a day. ACTIVITY: No lifting greater than 10 pounds for 6 weeks. OTHER ACTIVITY: Walk at least 6 times daily. May shower. Keep operative site clean and dry. Notify provider if any fever, increased pain, swelling, redness, drainage, nausea, vomiting. OTHER SPECIAL INSTRUCTION: Empty CARLOS drains 4 times a day and when half full. Record amount and color. Bring to clinic appointment. /[id number]
[2020-11-05] MEDS: Metoprolol Tartrate 25 MG Tab PO SCH (21:38)
[2020-11-05] MEDS: Divalproex Sodium Delayed-Release 250 MG Tab.CR PO SCH (21:39)
[2020-11-05] MEDS: Melatonin 3 MG Tab PO SCH (21:40)
[2020-11-05] MEDS: Mirtazapine 15 MG Tab PO SCH (21:41)
[2020-11-05] MEDS: Tamsulosin 0.4 MG Cap.ER PO SCH (21:49)
[2020-11-06] MEDS: Acetaminophen 325 MG Tab PO SCH ×4 (05:13→21:09)
[2020-11-06] MEDS: Levofloxacin 500 MG Tab PO SCH (07:20)
[2020-11-06] MEDS: Pantoprazole 40 MG Tab.CR PO SCH (07:20)
[2020-11-06] MEDS: Metoprolol Tartrate 50 MG Tab PO SCH (08:40)
[2020-11-06] MEDS: Aspirin 81 MG Tab.EC PO SCH (08:40)
[2020-11-06] MEDS: QUEtiapine 25 MG Tab PO SCH ×3 (08:40→21:10)
[2020-11-06] MEDS: Lactobacillus Rhamnosus GG (Probiotic) Cap PO SCH ×2 (08:41→21:09)
[2020-11-06] MEDS: Donepezil 10 MG Tab PO SCH (08:41)
[2020-11-06] MEDS: Docusate Sodium 100 MG Cap PO SCH ×2 (08:41→21:10)
[2020-11-06] MEDS: Furosemide 20 MG Tab PO SCH (08:41)
[2020-11-06] MEDS: Amoxicillin/Clavulanate K 875-125 MG Tab PO SCH ×2 (08:41→21:10)
[2020-11-06] MEDS: Escitalopram 20 MG Tab PO SCH (08:42)
[2020-11-06] MEDS: Memantine 10 MG Tab PO SCH ×2 (08:45→21:10)
--- NOTE | 2020-11-06 09:05 | PN ---
DATE OF SERVICE: 11/06/2020 SUBJECTIVE: Leonel was discharged yesterday, but due to insurance company prior authorization he was unable to be discharged. He continues to have stable vital signs and he has drainage out of his CARLOS drain, #1 had 3, CARLOS drain #2 had 10, #2 is still bilious. Remainder of review of systems negative for any pertinent positives and negatives. OBJECTIVE: GENERAL: Leonel Olguin is a 80-year-old male. He is sitting up in chair eating breakfast. VITAL SIGNS: TPR; 97.1, 78, 16. Blood pressure 126/64. HEART: Regular rate and rhythm. LUNGS: Clear. ABDOMEN: Steri-Strips are on. CARLOS drains as above. EXTREMITIES: Without peripheral edema. ASSESSMENT: 1. Delayed primary closure of open abdominal incision, 10/27/2020. Surgeon: Dusty Bashir. 2. Open cholecystectomy and drainage of periappendiceal abscess for acute necrotizing cholecystitis and cholelithiasis and pericolonic abscess. Date of procedure, 10/25/2020. Surgeon: Dusty Bashir MD. PLAN: 1. May go to the longterm as soon as insurance approves. 2. Check CBC, CMP, mag, phos in a.m. 3. We will evaluate p.r.n. or in a.m. Makenna Garrett PA-C /[id number]
[2020-11-06] MEDS: Mirtazapine 15 MG Tab PO SCH (21:10)
[2020-11-06] MEDS: Metoprolol Tartrate 25 MG Tab PO SCH (21:10)
[2020-11-06] MEDS: Divalproex Sodium Delayed-Release 250 MG Tab.CR PO SCH (21:10)
[2020-11-06] MEDS: Tamsulosin 0.4 MG Cap.ER PO SCH (21:10)
[2020-11-06] MEDS: Melatonin 3 MG Tab PO SCH (21:10)
[2020-11-07] MEDS: Acetaminophen 325 MG Tab PO SCH ×2 (08:54→09:01)
[2020-11-07] MEDS: Levofloxacin 500 MG Tab PO SCH (08:54)
[2020-11-07] MEDS: Amoxicillin/Clavulanate K 875-125 MG Tab PO SCH (08:55)
[2020-11-07] MEDS: Furosemide 20 MG Tab PO SCH (08:55)
[2020-11-07] MEDS: Aspirin 81 MG Tab.EC PO SCH (08:55)
[2020-11-07] MEDS: Donepezil 10 MG Tab PO SCH (08:55)
[2020-11-07] MEDS: Lactobacillus Rhamnosus GG (Probiotic) Cap PO SCH (08:55)
[2020-11-07] MEDS: Pantoprazole 40 MG Tab.CR PO SCH (08:55)
[2020-11-07] MEDS: Docusate Sodium 100 MG Cap PO SCH (08:55)
[2020-11-07] MEDS: QUEtiapine 25 MG Tab PO SCH (08:56)
[2020-11-07] MEDS: Metoprolol Tartrate 50 MG Tab PO SCH (08:56)
[2020-11-07] MEDS: Memantine 10 MG Tab PO SCH (08:56)
[2020-11-07] MEDS: Escitalopram 20 MG Tab PO SCH (08:56)
--- NOTE | 2020-11-07 10:32 | PN ---
DATE OF SERVICE: 11/07/2020 SUBJECTIVE: Leonel Olguin's vital signs and condition are stable. CARLOS drains put out 12 from #1 and 62 from #2, which is bile colored. Oral intake 1460. Urine output independent. Last bowel movement was 11/07/2020. REVIEW OF SYSTEMS: Remainder of review of systems negative for any pertinent positives and negatives. PHYSICAL EXAMINATION: GENERAL: Leonel Olguin is a 80-year-old male. VITAL SIGNS: TPR 96.3, 73, 18; blood pressure 119/57. HEENT: Negative. NECK: Supple. HEART: Regular rate and rhythm. LUNGS: Clear. ABDOMEN: Steri-Strips on. Incision as above. Abdominal binder is on. EXTREMITIES: Without peripheral edema. ASSESSMENT: 1. Delayed primary closure of open abdominal incision, 10/27/2020. Surgeon: Dusty Bashir MD. 2. Open cholecystectomy and drainage of periappendiceal abscess for acute necrotizing cholecystitis and cholelithiasis and pericolonic abscess. Date of procedure, 10/25/2020. Surgeon: Dusty Bashir MD. PLAN: [employer] did not authorize the patient to go to detention. Discharge planning is working on a plan for him to be discharged. We will evaluate p.r.n. or in a.m. Makenna Garrett PA-C /[id number]
== END 2020-11-07 12:58 | DRG 853 ==
LOC: JP.ED 18:39 → JP.MS 23:08
PROVIDERS: ADMIT Hospitalist; ATTEND Surgery
PROC: 0FT40ZZ Resection of Gallbladder, Open Approach (ICD-10-PCS; principal; 2020-10-25)
PROC: 0W9G0ZZ Drainage of Peritoneal Cavity, Open Approach (ICD-10-PCS; 2020-10-25)
PROC: 0WQF0ZZ Repair Abdominal Wall, Open Approach (ICD-10-PCS; 2020-10-27)
DX: A41.9 Sepsis, unspecified organism (principal); K81.0 Acute cholecystitis; K35.33 Acute appendicitis with perforation, localized peritonitis, and gangrene, with abscess; I25.10 Atherosclerotic heart disease of native coronary artery without angina pectoris; K80.00 Calculus of gallbladder with acute cholecystitis without obstruction; F02.81 Dementia in other diseases classified elsewhere, unspecified severity, with behavioral disturbance; Z20.822 Contact with and (suspected) exposure to COVID-19; Z66 Do not resuscitate; F02.80 Dementia in other diseases classified elsewhere, unspecified severity, without behavioral disturbance, psychotic disturbance, mood disturbance, and anxiety; H54.7 Unspecified visual loss; B95.4 Other streptococcus as the cause of diseases classified elsewhere; B95.7 Other staphylococcus as the cause of diseases classified elsewhere; E78.00 Pure hypercholesterolemia, unspecified; I25.119 Atherosclerotic heart disease of native coronary artery with unspecified angina pectoris; M19.90 Unspecified osteoarthritis, unspecified site; G30.9 Alzheimer's disease, unspecified; F41.9 Anxiety disorder, unspecified; F32.9 Major depressive disorder, single episode, unspecified; E66.9 Obesity, unspecified; I10 Essential (primary) hypertension; Z88.2 Allergy status to sulfonamides; Z79.82 Long term (current) use of aspirin; Z79.899 Other long term (current) drug therapy; Z68.34 Body mass index [BMI] 34.0-34.9, adult
CPT/HCPCS: 0241U; 36415; 71045; 71260; 74176; 74177; 76705; 80048; 80053; 81001; 83605; 83735; 83880; 84100; 84145; 84484; 85025; 85027; 85610; 87040; 87070; 87075; 87077; 87186; 87205; 88304; 93005; 94762; 96365; 97110; 97162; 97165; 97530; 97535; 99285; A9270-GY; C9113; J0131; J0171; J0330; J1100; J1170; J2185; J2405; J2543; J2704; J2710; J2795; J3010; J3410; J3490; J7050; J7120; J7121; Q9967

== ENCOUNTER 2022-04-29 12:59 | Inpatient (IN) | payer MEDICARE, MEDICAID ==
[2022-04-29 14:24] LABS: ESTIMATED GFR 86 mL/min (>60)
[2022-04-29] MEDS ORDERED: Sodium Chloride 0.9% 100 ML IV ONE (15:16)
[2022-04-29] MEDS: Iopamidol 755 Mg/ML 100 ML Bottle IV SCH ×2 (16:04→17:05)
[2022-04-29] MEDS: Sodium Chloride 0.9% 10 ML Syringe FLUSH PRN ×2 (16:04→17:05)
[2022-04-29 18:06] LABS: CORONAVIRUS COVID-19 NAA NEGATIVE (NEGATIVE)
[2022-04-29] MEDS ORDERED: Potassium Chloride 20 MEQ Tab.ER PO ONE (18:24)
[2022-04-29] MEDS ORDERED: Magnesium Hydroxide 400 MG/5 ML Susp 30 ML Cup PO PRN (18:24)
[2022-04-29] MEDS ORDERED: Ondansetron 4 MG/2 ML SDV IV PRN (18:24)
[2022-04-29] MEDS ORDERED: Albuterol 0.083% 2.5 MG/3 ML Neb Soln NEB PRN (18:24)
[2022-04-29] MEDS ORDERED: Ondansetron 4 MG Tab.DIS PO PRN (18:24)
[2022-04-29] MEDS ORDERED: Acetaminophen 325 MG Tab PO PRN (18:24)
[2022-04-29] MEDS: Sodium Chloride 0.9% 1,000 ML IV SCH (19:59)
[2022-04-29] MEDS: Ampicillin/Sulbactam Na 3 GM in Sodium Chloride 0.9% 100 ML IV SCH (20:00)
[2022-04-29] MEDS: Enoxaparin 40 MG/0.4 ML Syringe SUBCUT SCH (20:04)
[2022-04-29] MEDS: Lactobacillus Rhamnosus GG (Probiotic) Cap PO SCH (20:10)
[2022-04-29] MEDS: QUEtiapine 25 MG Tab PO SCH (20:10)
[2022-04-29] MEDS: Acetaminophen 325 MG Tab PO SCH (20:11)
[2022-04-29] MEDS: Metoprolol Tartrate 25 MG Tab PO SCH (20:12)
[2022-04-29] MEDS: Divalproex Sodium Delayed-Release 250 MG Tab.CR PO SCH (20:53)
[2022-04-29] MEDS: Melatonin 3 MG Tab PO SCH (20:53)
[2022-04-29] MEDS: Lisinopril 20 MG Tab PO SCH (20:54)
[2022-04-29] MEDS: Memantine 10 MG Tab PO SCH (20:56)
[2022-04-29] MEDS ORDERED: Mirtazapine 15 MG Tab PO SCH (21:00)
[2022-04-29] MEDS: Albuterol/Ipratropium 3.0-0.5 MG/3 ML Neb Soln NEB SCH (21:02)
[2022-04-30] MEDS: Ampicillin/Sulbactam Na 3 GM in Sodium Chloride 0.9% 100 ML IV SCH ×3 (00:04→12:39)
[2022-04-30 05:28] LABS: ESTIMATED GFR 86 mL/min (>60)
[2022-04-30] MEDS: Albuterol/Ipratropium 3.0-0.5 MG/3 ML Neb Soln NEB SCH ×4 (05:57→20:14)
[2022-04-30] MEDS: Sodium Chloride 0.9% 1,000 ML IV SCH (07:57)
[2022-04-30] MEDS: Lisinopril 20 MG Tab PO SCH ×2 (09:22→20:18)
[2022-04-30] MEDS: Pantoprazole 40 MG Tab.CR PO SCH ×2 (09:22→15:57)
[2022-04-30] MEDS: Aspirin 81 MG Tab.EC PO SCH (09:23)
[2022-04-30] MEDS: Lactobacillus Rhamnosus GG (Probiotic) Cap PO SCH ×2 (09:23→20:14)
[2022-04-30] MEDS: Donepezil 10 MG Tab PO SCH (09:23)
[2022-04-30] MEDS: Escitalopram 20 MG Tab PO SCH (09:23)
[2022-04-30] MEDS: Memantine 10 MG Tab PO SCH ×2 (09:24→20:19)
[2022-04-30] MEDS: QUEtiapine 25 MG Tab PO SCH ×3 (09:24→20:17)
[2022-04-30] MEDS: Acetaminophen 325 MG Tab PO SCH ×3 (09:24→20:18)
[2022-04-30] MEDS: Metoprolol Tartrate 50 MG Tab PO SCH ×2 (10:17→20:14)
[2022-04-30] MEDS: Metoprolol Tartrate 25 MG Tab PO SCH (10:18)
[2022-04-30] MEDS ORDERED: QUEtiapine 25 MG Tab PO SCH (15:00)
[2022-04-30] MEDS: Enoxaparin 40 MG/0.4 ML Syringe SUBCUT SCH (18:40)
[2022-04-30] MEDS: Amoxicillin/Clavulanate K 875-125 MG Tab PO SCH (20:14)
[2022-04-30] MEDS: Divalproex Sodium Delayed-Release 250 MG Tab.CR PO SCH (20:17)
[2022-04-30] MEDS: Melatonin 3 MG Tab PO SCH (20:18)
[2022-04-30] MEDS: Mirtazapine 15 MG Tab PO SCH (20:18)
[2022-04-30] MEDS ORDERED: Metoprolol Tartrate 25 MG Tab PO SCH (21:00)
[2022-04-30] MEDS ORDERED: Metoprolol Tartrate 50 MG Tab PO SCH (21:00)
[2022-05-01 05:22] LABS: ESTIMATED GFR 86 mL/min (>60)
[2022-05-01] MEDS: Albuterol/Ipratropium 3.0-0.5 MG/3 ML Neb Soln NEB SCH ×4 (07:00→20:19)
[2022-05-01] MEDS: Pantoprazole 40 MG Tab.CR PO SCH ×2 (07:53→16:50)
[2022-05-01] MEDS: Amoxicillin/Clavulanate K 875-125 MG Tab PO SCH ×2 (07:53→20:07)
[2022-05-01] MEDS: Acetaminophen 325 MG Tab PO SCH ×3 (08:00→20:09)
[2022-05-01] MEDS: Donepezil 10 MG Tab PO SCH (09:23)
[2022-05-01] MEDS: Aspirin 81 MG Tab.EC PO SCH (09:24)
[2022-05-01] MEDS: Lactobacillus Rhamnosus GG (Probiotic) Cap PO SCH ×2 (09:24→20:07)
[2022-05-01] MEDS: Metoprolol Tartrate 50 MG Tab PO SCH ×2 (09:24→20:10)
[2022-05-01] MEDS: Escitalopram 20 MG Tab PO SCH (09:24)
[2022-05-01] MEDS: Lisinopril 20 MG Tab PO SCH ×2 (09:26→20:15)
[2022-05-01] MEDS: Memantine 10 MG Tab PO SCH ×2 (09:26→20:08)
[2022-05-01] MEDS: Doxycycline 100 MG Cap PO SCH ×2 (09:27→20:09)
[2022-05-01] MEDS: QUEtiapine 25 MG Tab PO SCH ×3 (09:38→20:08)
[2022-05-01] MEDS: Enoxaparin 40 MG/0.4 ML Syringe SUBCUT SCH (18:36)
[2022-05-01] MEDS: Melatonin 3 MG Tab PO SCH (20:08)
[2022-05-01] MEDS: Mirtazapine 15 MG Tab PO SCH (20:08)
[2022-05-01] MEDS: Divalproex Sodium Delayed-Release 250 MG Tab.CR PO SCH (20:09)
[2022-05-02] MEDS: Albuterol/Ipratropium 3.0-0.5 MG/3 ML Neb Soln NEB SCH ×2 (07:08→10:48)
[2022-05-02] MEDS: Pantoprazole 40 MG Tab.CR PO SCH (07:58)
[2022-05-02] MEDS: Amoxicillin/Clavulanate K 875-125 MG Tab PO SCH (07:58)
[2022-05-02] MEDS: Lactobacillus Rhamnosus GG (Probiotic) Cap PO SCH (08:00)
[2022-05-02] MEDS: Escitalopram 20 MG Tab PO SCH (08:00)
[2022-05-02] MEDS: Acetaminophen 325 MG Tab PO SCH (08:00)
[2022-05-02] MEDS: Donepezil 10 MG Tab PO SCH (08:00)
[2022-05-02] MEDS: Aspirin 81 MG Tab.EC PO SCH (08:00)
[2022-05-02] MEDS: Metoprolol Tartrate 50 MG Tab PO SCH (08:00)
[2022-05-02] MEDS: Memantine 10 MG Tab PO SCH (08:01)
[2022-05-02] MEDS: Lisinopril 20 MG Tab PO SCH (08:01)
[2022-05-02] MEDS: Doxycycline 100 MG Cap PO SCH (10:56)
[2022-05-02] MEDS: QUEtiapine 25 MG Tab PO SCH (10:56)
== END 2022-05-02 11:40 | disposition home health service (06) | DRG 177 ==
LOC: JP.ED 12:59 → JP.MS 17:49
PROVIDERS: ADMIT Internal Medicine; ATTEND Internal Medicine
DX: J69.0 Pneumonitis due to inhalation of food and vomit (principal); J96.01 Acute respiratory failure with hypoxia; F02.818 Dementia in other diseases classified elsewhere, unspecified severity, with other behavioral disturbance; G30.9 Alzheimer's disease, unspecified; H54.7 Unspecified visual loss; E78.00 Pure hypercholesterolemia, unspecified; F02.80 Dementia in other diseases classified elsewhere, unspecified severity, without behavioral disturbance, psychotic disturbance, mood disturbance, and anxiety; Z66 Do not resuscitate; Z20.822 Contact with and (suspected) exposure to COVID-19; E66.9 Obesity, unspecified; I10 Essential (primary) hypertension; I25.10 Atherosclerotic heart disease of native coronary artery without angina pectoris; M19.90 Unspecified osteoarthritis, unspecified site; F32.A Depression, unspecified; F41.9 Anxiety disorder, unspecified; Z88.2 Allergy status to sulfonamides; Z79.82 Long term (current) use of aspirin; Z79.899 Other long term (current) drug therapy; Z79.84 Long term (current) use of oral hypoglycemic drugs
CPT/HCPCS: 0241U; 36415; 71045; 71275; 76705; 80053; 84145; 85025; 85027; 85379; 86140; 94640; 97110; 97162; 97530; 99285; A9270-GY; J0295; J1650; J3490; J7030; J7620; Q9967